=== PATIENT | female | born 1995 | race Caucasian/White ===

== ENCOUNTER 2017-04-05 17:53 | Outpatient (CLI) | payer MEDICAID ==
[2017-04-05] MEDS ORDERED: Lactated Ringers 1,000 ML IV SCH (18:15)
[2017-04-05] MEDS ORDERED: hydrOXYzine Pamoate 25 MG Cap PO ONE (18:33)
[2017-04-05 19:18] LABS: CHLORIDE,CL 107 mmol/L (98-110); SODIUM,NA 138 mmol/L (136-146)
--- NOTE | 2017-04-06 00:50 | HP ---
DATE OF : 1995 PRIMARY CARE PHYSICIAN: None PCP CHIEF COMPLAINT: Vaginal bleeding. HISTORY: This is a 21-year-old female. She is G2, P1-0-1-1. She presents at 34 and 0/7th weeks' gestation with bright red blood after wiping. She has not had any vaginal intercourse in the last 48 hours. 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 She was working today when the bleeding occurred. She denies any abdominal pain. No nausea or vomiting. Baby has been active. She is not noticing any contractions. Her care is with Dr. Jamison. It has to this point been uncomplicated. 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 She was scheduled to have her thyroid labs rechecked this Tuesday. She states that she is feeling anxious as she does sometimes when her thyroid is not appropriately adjusted. She does have a history of depression. She is blood type O positive, rubella nonimmune. PAST MEDICAL HISTORY: Significant for depression, hypothyroidism secondary to Berry's thyroiditis. PAST SURGICAL HISTORY: Negative. ALLERGIES: She has an allergy to an antibiotic. She is uncertain which one it is. SOCIAL HISTORY: She is single, sexually active. She denies use of tobacco, alcohol, or street drugs. PHYSICAL EXAMINATION: GENERAL: She is alert and oriented, but very anxious appearing. VITAL SIGNS: Blood pressure is 138/79, pulse is 96, heart tones are 135 with moderate variability, accelerations present, no decelerations are noted. She is having contractions every 8 to 15 minutes. LUNGS: Clear. CARDIOVASCULAR: Regular rate without murmur. ABDOMEN: Soft, gravid, nontender. Fundus is appropriate height for gestational age and nontender. EXTREMITIES: Show trace edema. GENITAL EXAM: External genitalia appears normal. Vagina is moist and pink. There is a whitish discharge. There is no blood in the vagina. Cervix is closed, firm, and thick. ASSESSMENT AND PLAN: 1. Thirty-four week intrauterine with vaginal bleeding. We will get ultrasound to assess the placenta and cervical length. fibronectin is also obtained to rule out labor and the Affirm swab and gonorrhea chlamydia testing are obtained to rule out vaginitis or cervicitis as a cause of the spotting. If all of the evaluation is negative, we will have her off work for one day. She may resume work the following day, and she does have an appointment on Tuesday, so she can report any further symptoms at that time. 2. Anxiety and hypothyroidism. We will check TSH and free T4 at this time. She is given visceral to help with her anxiety. CHRISTAL KENNEDY /[id number]
--- NOTE | 2017-04-06 15:54 | US ---
EXAM DATE: 04/05/17 PATIENT'S AGE: 21 Patient: RUTH HORVATH Facility: [place], [place] Site . Site : 1995 Study: OB Pelvis [id number]/9/2017 8:19:57 PM Ordering Physician: Shaheen Ceron Final Report: INDICATION: with vaginal bleeding. Check placenta, cervical length. TECHNIQUE: Limited OB pelvis with transabdominal and endovaginal imaging. Limited decker- scale imaging of the fetus was performed. COMPARISON: Limited OB ultrasound dated 01/09/2017 FINDINGS: The cervix is long and closed on endovaginal imaging. No funneling of the internal os. Mean cervical length 3.8 centimeters. No evidence of placenta previa or abruption. Placenta is anterior in location. heart rate measures 150 beats per minute. SHAY normal, measuring 19.7 centimeters. IMPRESSION: 1. Single viable intrauterine with clinical gestational age of 34 weeks 0 days with clinical DOC 05/17/2017. 2. Cervix long and closed. 3. Normal SHAY. Dictated by Ej Shrestha MD @ 04/05/2017 8:57:33 PM Dictated by: Ej Shrestha MD @ 04/05/2017 20:57:40 (Electronic Signature) Report Signed by Proxy. MTDD
== END 2017-04-05 22:00 | disposition home or self-care (01) ==
LOC: MW.OBCHECK 17:53 → MW.OB 17:54 → MW.OBCHECK 22:00
PROVIDERS: ATTEND Obstetrics & Gynecology
DX: O46.93 Antepartum hemorrhage, unspecified, third trimester (principal); N93.9 Abnormal uterine and vaginal bleeding, unspecified; Z3A.34 34 weeks gestation of pregnancy
CPT/HCPCS: 36415; 59025; 76815; 76815-26; 80053; 81003; 82731; 84439; 84443; 85027; 87480; 87491; 87510; 87591; 87660

== ENCOUNTER 2017-04-12 14:23 | Outpatient (CLI) | payer MEDICAID ==
[2017-04-12 15:22] LABS: CHLORIDE,CL 106 mmol/L (98-110); SODIUM,NA 137 mmol/L (136-146)
[2017-04-12] MEDS ORDERED: Acetaminophen/Butalbital/Caffeine 325-50-40 MG Tab PO ONE (15:37)
[2017-04-12] MEDS ORDERED: hydrOXYzine Pamoate 25 MG Cap PO ONE (15:37)
== END 2017-04-12 15:58 | disposition home or self-care (01) ==
LOC: MW.OBCHECK 14:23
PROVIDERS: ATTEND Obstetrics & Gynecology
DX: O26.899 Other specified pregnancy related conditions, unspecified trimester (principal); R51 Headache; Z3A.00 Weeks of gestation of pregnancy not specified
CPT/HCPCS: 36415; 59025; 80053; 81003; 84550; 85027; A9270

== ENCOUNTER 2017-05-22 16:47 | Inpatient (IN) | payer MEDICAID ==
[2017-05-22] MEDS ORDERED: Carboprost Tromethamine 250 MCG/1 ML Amp IM PRN (16:59)
[2017-05-22] MEDS ORDERED: Water For Irrigation,Sterile 1,000 ML Container IRR PRN (16:59)
[2017-05-22] MEDS ORDERED: Lidocaine 1% 50 ML MDV INJECT PRN (16:59)
[2017-05-22] MEDS ORDERED: Misoprostol 200 MCG Tab PO PRN (16:59)
[2017-05-22] MEDS ORDERED: Sodium Chloride 0.9% 10 ML Syringe FLUSH PRN (16:59)
[2017-05-22] MEDS ORDERED: Sodium Chloride 0.9% 2.5 ML Syringe FLUSH PRN (16:59)
[2017-05-22] MEDS ORDERED: Butorphanol 1 MG/ML SDV IVPUSH PRN (16:59)
[2017-05-22] MEDS ORDERED: Methylergonovine 0.2 MG/1 ML Amp IM PRN (16:59)
[2017-05-22] MEDS ORDERED: Oxytocin/Lactated Ringers 30 UNIT/500 ML BAG IV SCH ×2 (17:00→17:15)
[2017-05-22] MEDS ORDERED: Terbutaline 1 MG/ML SDV SUBCUT PRN (17:02)
[2017-05-22] MEDS ORDERED: Misoprostol 25 MCG (1/4 of 100 MCG) Tab VAG PRN (17:02)
[2017-05-22] MEDS ORDERED: Misoprostol 25 MCG (1/4 of 100 MCG) Tab VAG ONE (17:15)
[2017-05-22] MEDS: Lactated Ringers 1,000 ML IV SCH (17:45)
[2017-05-23] MEDS: Lactated Ringers 1,000 ML IV SCH ×2 (10:24→11:13)
[2017-05-23] MEDS ORDERED: fentaNYL 100 MCG/2 ML SDV ONE (10:49)
[2017-05-23] MEDS ORDERED: Ropivacaine 0.2% 2 MG/ML 20 ML SDV ONE (10:55)
[2017-05-23] MEDS ORDERED: Bisacodyl 10 MG Supp RECTAL PRN (16:34)
[2017-05-23] MEDS ORDERED: Docusate Sodium 100 MG Cap PO PRN (16:34)
[2017-05-23] MEDS ORDERED: Benzocaine/Menthol 20%-0.5% Spray 78 GM Cannister TOP PRN (16:34)
[2017-05-23] MEDS ORDERED: Lanolin 100% Cream 7 GM Tube TOP PRN (16:34)
[2017-05-23] MEDS ORDERED: Witch Hazel Medicated Pads 40/Jar TOP PRN (16:34)
[2017-05-23] MEDS ORDERED: Acetaminophen 500 MG Tab PO PRN ×2 (16:34)
[2017-05-23] MEDS ORDERED: oxyCODONE 5 MG Tab PO PRN (16:34)
[2017-05-23] MEDS ORDERED: Ibuprofen 400 MG Tab PO PRN (16:34)
--- NOTE | 2017-05-23 17:04 | OR ---
SURGEON: Jie Jamison M.D. DATE OF PROCEDURE: 05/23/2017 PREOPERATIVE DIAGNOSES: 1. A 40 and 6 weeks intrauterine . 2. Induction of labor for positive . POSTOPERATIVE DIAGNOSES: 1. A 40 and 6 weeks intrauterine . 2. Induction of labor for positive . PROCEDURE: Spontaneous vaginal delivery with first-degree labial laceration repair. ESTIMATED BLOOD LOSS: 300 mL. ANESTHESIA: Epidural. COMPLICATIONS: None. FINDINGS: Viable female. Score 7 at one minute and 9 at five minutes. Weight, pending. Spontaneous delivery of intact placenta. Three-vessel cord. DISPOSITION: Infant to nursery, mom in LDRP, stable. PROCEDURE IN DETAIL: Hillary is a 21-year-old G3, P1-0-1-1, at 40 and 6 weeks gestational age, presents yesterday evening for an induction for positive . She received three doses of Cytotec and responded nicely to this. The following morning was found to be 4 cm, was initiated on Pitocin, became increasingly uncomfortable throughout the morning hours. She had category I heart tones in the 120s. She underwent an epidural shortly before noon and amniotomy was performed shortly after noon. Clear fluid was returned. At that time, she was found to be 5 cm, 100% effaced, 0 station. She continued to progress through the afternoon hours and shortly after 3:00 p.m. was found to be complete, 100% effaced, and +1 station. Began pushing efforts, pushed out satisfactorily. I was called for delivery. Upon my arrival, the patient was placed in modified dorsal lithotomy position. She was prepped and draped in the usual aseptic manner. With continued pushing efforts, was able to deliver infant's head atraumatically, spontaneously in the ROP position. Anterior shoulder, posterior shoulder, and remainder of the body was delivered without difficulty. The infant's oropharynx and nares bulb suctioned. Cord clamped x2 and cut. was handed off to her mother today with nursing staff at her side. Cord arterial, cord venous, cord blood sampling was obtained. Light suprapubic pressure was applied while the placenta was delivered spontaneously intact. Vigorous fundal uterine massage was then applied with 30 units of Pitocin was delivered in 500 mL IV fluid. Upon inspection of cervix, vaginal sidewalls, and perineum, there was found to be 1st degree right labial and left hymenal ring tear. Laceration was repaired using 3-0 Vicryl. The patient tolerated the repair well. Hemostasis appears evident. Sponge count and needle count correct. Fundus remains firm. Hemostasis evident. Hillary will remain in LDRP and nursery. JADA / MARCIA /[id number]
[2017-05-23] MEDS: Ibuprofen 800 MG Tab PO PRN ×2 (17:10→23:42)
[2017-05-24] MEDS: Ibuprofen 800 MG Tab PO PRN ×2 (05:32→13:17)
[2017-05-24 08:03] VITALS: BP 109/55
--- NOTE | 2017-05-24 08:28 | PCM.PNPP ---
[id number] Status: Reports: pain controlled, tolerating diet, ambulating, urinating - Review of Systems General: Denies: Fever, Weakness, Fatigue Pulmonary: Denies: shortness of breath, pleuritic chest pain, cough Cardiovascular: Denies: Chest Pain, Palpitations, Dyspnea on Exertion Gastrointestinal: Denies: Abdominal pain Genitourinary: Denies: dysuria Psychiatric: Reports: no symptoms - General Info Date of Service: 05/24/17 - Patient Data Vital Signs - most recent: Last Vital Signs Temp 36.7 C 05/24/17 08:02 Pulse 54 L 05/24/17 08:02 Resp 18 05/24/17 08:02 BP 109/55 L 05/24/17 08:02 Pulse Ox Weight - most recent: 87.543 kg Lab Results - last 24 hrs: Laboratory Results - last 24 hr 05/24/17 Range/Units 04:19 Hgb 11.4 L (12.0-16.0) g/dL Hct 32.8 L (36.0-46.0) % Med Orders - Current: Current Medications Acetaminophen (Tylenol Extra Strength) 500 mg PO Q4H PRN PRN Reason: Pain Acetaminophen (Tylenol Extra Strength) 1,000 mg PO Q4H PRN PRN Reason: Pain Benzocaine/Menthol (Dermoplast Pain Relief 20%-0.5% [place]) 78 gm TOP ASDIRECTED PRN PRN Reason: Perineal Comfort Measure Last Admin: 05/23/17 17:09 Dose: 1 can Bisacodyl (Dulcolax) 10 mg RECTAL .ONCE PRN PRN Reason: Constipation Carboprost Tromethamine (Hemabate Ds) 250 mcg IM ASDIRECTED PRN PRN Reason: Post Hemorrhage Docusate Sodium (Colace) 100 mg PO BID PRN PRN Reason: Constipation Last Admin: 05/23/17 17:10 Dose: 100 mg Emollient Ointment (Lansinoh Hpa) 0 gm TOP ASDIRECTED PRN PRN Reason: Sore Nipples Lactated Ringer's (Ringers, Lactated) 1,000 mls @ 150 mls/hr IV ASDIRECTED JAZMYN Last Admin: 05/23/17 11:13 Dose: 150 mls/hr Oxytocin/Lactated Ringer's (Pitocin In Lr 30 Units/500 Ml) 30 unit in 500 mls @ 2 mls/hr IV TITRATE JAZMYN; 2 MUNITS/MIN PRN Reason: Protocol Last Titration: 05/23/17 11:47 Dose: 6 munits/min, 6 mls/hr Ibuprofen (Motrin) 400 mg PO Q4H PRN PRN Reason: Pain Ibuprofen (Motrin) 800 mg PO Q6H PRN PRN Reason: Pain Last Admin: 05/24/17 05:32 Dose: 800 mg Lidocaine HCl (Xylocaine 1%) 50 ml INJECT .ONCE PRN PRN Reason: Laceration repair Methylergonovine Maleate (Methergine) 0.2 mg IM ASDIRECTED PRN PRN Reason: Post Hemorrhage Oxycodone HCl (Oxycodone) 5 mg PO Q2H PRN PRN Reason: Pain Sodium Chloride (Saline Flush) 2.5 ml FLUSH ASDIRECTED PRN PRN Reason: Keep Vein Open Witch Helen (Tucks) 1 pad TOP ASDIRECTED PRN PRN Reason: comfort care Last Admin: 05/23/17 17:09 Dose: 1 tub Discontinued Medications Butorphanol Tartrate (Stadol) 1 mg IVPUSH Q1H PRN PRN Reason: Pain Fentanyl (Sublimaze) Confirm Administered Dose 100 mcg .ROUTE .STK-MED ONE Stop: 05/23/17 10:50 Last Admin: 05/23/17 22:15 Dose: Not Given Oxytocin/Lactated Ringer's (Pitocin In Lr 30 Units/500 Ml) 30 unit in 500 mls @ 999 mls/hr IV TITRATE JAZMYN PRN Reason: 999 MUNITS/MIN Stop: 05/22/17 17:31 Last Admin: 05/23/17 22:14 Dose: Not Given Ropivacaine/Fentanyl/NS (Fentanyl 2 Mcg-Ropiv 0.2%-Ns) Confirm Administered Dose 100 mls @ as directed .ROUTE .STK-MED ONE Stop: 05/23/17 10:51 Last Admin: 05/23/17 22:15 Dose: Not Given Misoprostol (Cytotec) 200 mcg PO .ONCE PRN PRN Reason: Post Hemorrhage Misoprostol (Cytotec) 25 mcg VAG ONETIME ONE Stop: 05/22/17 17:16 Last Admin: 05/22/17 18:01 Dose: 25 mcg Misoprostol (Cytotec) 25 mcg VAG Q6H PRN PRN Reason: Cervical Ripening Stop: 05/24/17 11:03 Last Admin: 05/23/17 00:19 Dose: 25 mcg Ropivacaine (Naropin 0.2%) Confirm Administered Dose 20 ml .ROUTE .STK-MED ONE Stop: 05/23/17 10:56 Last Admin: 05/23/17 22:15 Dose: Not Given Sodium Chloride (Saline Flush) 10 ml FLUSH ASDIRECTED PRN PRN Reason: Keep Vein Open Sterile Water (Sterile Water For Irrigation) 1,000 ml IRR ASDIRECTED PRN PRN Reason: delivery Last Admin: 05/23/17 16:11 Dose: 1,000 ml Terbutaline Sulfate (Brethine) 0.25 mg SUBCUT ASDIRECTED PRN PRN Reason: Tacysystole - Infant Interaction Infant Disposition, : in Room with Family Interaction: Holding Feeding: Breastfed ; Nursed Well Support Person: Mother, Friend - Recovery Exam Fundal Tone: Firm Fundal Level: 1 Fingerbreadths Below Umbilicus Fundal Placement: Midline Lochia Amount: Scant Lochia Color: Rubra/Red Episiotomy/Laceration: Approximated Bladder Status: Voiding - Exam General: alert, oriented Neck: supple Lungs: Clear to auscultation, Normal respiratory effort Cardiovascular: Regular Rate, Regular Rhythm Abdomen: bowel sounds present, soft, no tenderness, no distension Extremities: edema (trace) Psy/Mental Status: alert, normal affect, normal mood - Problem List & Annotations (1) Vaginal delivery SNOMED Code(s): 872395194 Code(s): O80 - ENCOUNTER FOR FULL-TERM UNCOMPLICATED DELIVERY Status: Acute Current Visit: Yes - Problem List Review Problem List Initiated/Reviewed/Updated: Yes - Assessment Assessment:: PPD#1 from . Minimal pain and lochia. Breast feeding well. Patient would like to go home today. - Plan Plan:: Discharge home today. Nothing in the vagina for 6 weeks. Continue PNV while breast feeding. Can use OTC ibuprofen/tylenol as needed for pain. Instructed patient to call if she develops fever greater than 101 or starts bleeding through a large pad an hour. F/U with [facility] in 6 weeks. <Jie Jamison R - Last Filed: 05/24/17 09:20> - Patient Data Vital Signs - most recent: Last Vital Signs Temp 36.7 C 05/24/17 08:02 Pulse 54 L 05/24/17 08:02 Resp 18 05/24/17 08:02 BP 109/55 L 05/24/17 08:02 Pulse Ox Lab Results - last 24 hrs: Laboratory Results - last 24 hr 05/24/17 Range/Units 04:19 Hgb 11.4 L (12.0-16.0) g/dL Hct 32.8 L (36.0-46.0) % Med Orders - Current: Current Medications Acetaminophen (Tylenol Extra Strength) 500 mg PO Q4H PRN PRN Reason: Pain Acetaminophen (Tylenol Extra Strength) 1,000 mg PO Q4H PRN PRN Reason: Pain Benzocaine/Menthol (Dermoplast Pain Relief 20%-0.5% [place]) 78 gm TOP ASDIRECTED PRN PRN Reason: Perineal Comfort Measure Last Admin: 05/23/17 17:09 Dose: 1 can Bisacodyl (Dulcolax) 10 mg RECTAL .ONCE PRN PRN Reason: Constipation Carboprost Tromethamine (Hemabate Ds) 250 mcg IM ASDIRECTED PRN PRN Reason: Post Hemorrhage Docusate Sodium (Colace) 100 mg PO BID PRN PRN Reason: Constipation Last Admin: 05/23/17 17:10 Dose: 100 mg Emollient Ointment (Lansinoh Hpa) 0 gm TOP ASDIRECTED PRN PRN Reason: Sore Nipples Lactated Ringer's (Ringers, Lactated) 1,000 mls @ 150 mls/hr IV ASDIRECTED JAZMYN Last Admin: 05/23/17 11:13 Dose: 150 mls/hr Oxytocin/Lactated Ringer's (Pitocin In Lr 30 Units/500 Ml) 30 unit in 500 mls @ 2 mls/hr IV TITRATE JAZMYN; 2 MUNITS/MIN PRN Reason: Protocol Last Titration: 05/23/17 11:47 Dose: 6 munits/min, 6 mls/hr Ibuprofen (Motrin) 400 mg PO Q4H PRN PRN Reason: Pain Ibuprofen (Motrin) 800 mg PO Q6H PRN PRN Reason: Pain Last Admin: 05/24/17 05:32 Dose: 800 mg Lidocaine HCl (Xylocaine 1%) 50 ml INJECT .ONCE PRN PRN Reason: Laceration repair Methylergonovine Maleate (Methergine) 0.2 mg IM ASDIRECTED PRN PRN Reason: Post Hemorrhage Oxycodone HCl (Oxycodone) 5 mg PO Q2H PRN PRN Reason: Pain Sodium Chloride (Saline Flush) 2.5 ml FLUSH ASDIRECTED PRN PRN Reason: Keep Vein Open Witch Helen (Tucks) 1 pad TOP ASDIRECTED PRN PRN Reason: comfort care Last Admin: 05/23/17 17:09 Dose: 1 tub Discontinued Medications Butorphanol Tartrate (Stadol) 1 mg IVPUSH Q1H PRN PRN Reason: Pain Fentanyl (Sublimaze) Confirm Administered Dose 100 mcg .ROUTE .STK-MED ONE Stop: 05/23/17 10:50 Last Admin: 05/23/17 22:15 Dose: Not Given Oxytocin/Lactated Ringer's (Pitocin In Lr 30 Units/500 Ml) 30 unit in 500 mls @ 999 mls/hr IV TITRATE JAZMYN PRN Reason: 999 MUNITS/MIN Stop: 05/22/17 17:31 Last Admin: 05/23/17 22:14 Dose: Not Given Ropivacaine/Fentanyl/NS (Fentanyl 2 Mcg-Ropiv 0.2%-Ns) Confirm Administered Dose 100 mls @ as directed .ROUTE .STK-MED ONE Stop: 05/23/17 10:51 Last Admin: 05/23/17 22:15 Dose: Not Given Misoprostol (Cytotec) 200 mcg PO .ONCE PRN PRN Reason: Post Hemorrhage Misoprostol (Cytotec) 25 mcg VAG ONETIME ONE Stop: 05/22/17 17:16 Last Admin: 05/22/17 18:01 Dose: 25 mcg Misoprostol (Cytotec) 25 mcg VAG Q6H PRN PRN Reason: Cervical Ripening Stop: 05/24/17 11:03 Last Admin: 05/23/17 00:19 Dose: 25 mcg Ropivacaine (Naropin 0.2%) Confirm Administered Dose 20 ml .ROUTE .STK-MED ONE Stop: 05/23/17 10:56 Last Admin: 05/23/17 22:15 Dose: Not Given Sodium Chloride (Saline Flush) 10 ml FLUSH ASDIRECTED PRN PRN Reason: Keep Vein Open Sterile Water (Sterile Water For Irrigation) 1,000 ml IRR ASDIRECTED PRN PRN Reason: delivery Last Admin: 05/23/17 16:11 Dose: 1,000 ml Terbutaline Sulfate (Brethine) 0.25 mg SUBCUT ASDIRECTED PRN PRN Reason: Tacysystole - My Orders Last 24 Hours: My Active Orders 05/23/17 16:34 Patient Status [ADT] Routine May Shower [RC] ASDIRECTED Oxygen Therapy [RC] ASDIRECTED Up ad Arlene [RC] ASDIRECTED Vital Signs [RC] PER UNIT ROUTINE Acetaminophen [Tylenol Extra Strength] 1,000 mg PO Q4H PRN Acetaminophen [Tylenol Extra Strength] 500 mg PO Q4H PRN Benzocaine/Menthol [Dermoplast Pain Relief 20%-0.5% [place]] 78 gm TOP ASDIRECTED PRN Bisacodyl [Dulcolax] 10 mg RECTAL .ONCE PRN Docusate Sodium [Colace] 100 mg PO BID PRN Ibuprofen [Motrin] 400 mg PO Q4H PRN Ibuprofen [Motrin] 800 mg PO Q6H PRN Lanolin [Lansinoh HPA] See Dose Instructions TOP ASDIRECTED PRN Witch Helen [Tucks] 1 pad TOP ASDIRECTED PRN oxyCODONE 5 mg PO Q2H PRN Assess Lochia [WOMSER] Per Unit Routine Assess Uterine Involution [WOMSER] Per Unit Routine Ice Therapy [OM.PC] Per Unit Routine Perineal Care [OM.PC] Per Unit Routine Peripheral IV Discontinue [OM.PC] Routine Sitz Bath [OM.PC] Per Unit Routine 05/23/17 Dinner Regular Diet [DIET] - Plan Plan:: Patient seen and examined, will start antidepressants aas discussed for PP depression prophylaxis given history. Will check thyroid function at PP visit
--- NOTE | 2017-05-24 10:15 | PCM48HPAN ---
Post Anesthesia Note - EVALUATION WITHIN 48HRS OF ANESTHETIC Vital Signs in Normal Range: Yes Patient Participated in Evaluation: Yes Respiratory Function Stable: Yes Airway Patent: Yes Cardiovascular Function Stable: Yes Hydration Status Stable: Yes Pain Control Satisfactory: Yes Nausea and Vomiting Control Satisfactory: Yes Mental Status Recovered: Yes
[2017-05-24] MEDS ORDERED: Measles, Mumps & Rubella Vaccine 0.5 ML SDV SUBCUT ONE (15:18)
== END 2017-05-24 19:15 | disposition home or self-care (01) | DRG 775 ==
LOC: MW.OBCHECK 16:47 → MW.OB 16:49 → MW.OBCHECK 17:04 → OBSVTOIN 05-23 16:11 → MW.OB 05-24 00:07
PROVIDERS: ADMIT Obstetrics & Gynecology; ATTEND Obstetrics & Gynecology
PROC: 10E0XZZ Delivery of Products of Conception, External Approach (ICD-10-PCS; principal; 2017-05-23)
PROC: 0HQ9XZZ Repair Perineum Skin, External Approach (ICD-10-PCS; 2017-05-23)
PROC: 10907ZC Drainage of Amniotic Fluid, Therapeutic from Products of Conception, Via Natural or Artificial Opening (ICD-10-PCS; 2017-05-23)
PROC: 00HU33Z Insertion of Infusion Device into Spinal Canal, Percutaneous Approach (ICD-10-PCS; 2017-05-23)
PROC: 3E0R3CZ (ICD-10-PCS; 2017-05-23)
DX: O48.0 Post-term pregnancy (principal); O70.0 First degree perineal laceration during delivery; Z3A.41 41 weeks gestation of pregnancy; Z37.0 Single live birth; O99.284 Endocrine, nutritional and metabolic diseases complicating childbirth; E06.3 Autoimmune thyroiditis; Z87.891 Personal history of nicotine dependence
CPT/HCPCS: 01967; 36415; 59025; 85014; 85018; 85027; 86850; 86900; 86901; 90707; A9270-GY; J7120

== ENCOUNTER 2017-05-26 19:28 | Inpatient (IN) | payer MEDICAID ==
[2017-05-26] MEDS ORDERED: Sodium Chloride 0.9% 10 ML Syringe FLUSH PRN (19:51)
[2017-05-26] MEDS ORDERED: Sodium Chloride 0.9% 2.5 ML Syringe FLUSH PRN (19:51)
[2017-05-26] MEDS ORDERED: LORazepam 2 MG/ML MDV IVPUSH ONE (19:53)
[2017-05-26] MEDS ORDERED: Acetaminophen 325 MG Tab PO ONE (19:53)
--- NOTE | 2017-05-26 19:55 | EDM.PDOC ---
[id number] 4d fever Time Seen by Provider: 05/26/17 19:50 - History of Present Illness INITIAL COMMENTS - FREE TEXT/NARRATIVE: vaginal at term Tuesday. Now with fever. She also felt anxious and felt that her heart was racing. no BM since delivery. She is breast feeding. 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: , 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 Musculoskeletal History: Reports: None Neurological History: Reports: None Psychiatric History: Reports: Anxiety Endocrine/Metabolic History: Reports: Hypothyroidism, Other (See Below) Other Endocrine/Metabolic History: Hasimotos tyroiditis Hematologic History: Reports: None Immunologic History: Reports: Other (See Below) Other Immunologic History: Hashimotos disease Oncologic (Cancer) History: Reports: None Dermatologic History: Reports: None - Infectious Disease History Infectious Disease History: Reports: None - Past Surgical History Head Surgeries/Procedures: Reports: None Female Surgical History: Reports: D&C Social & Family History - Family History Family Medical History: Noncontributory Cardiac: Reports: Pacemaker Respiratory: Reports: Asthma OBGYN: Reports: Neurological: Reports: CVA Endocrine/Metabolic: Reports: Diabetes, type II Oncologic: Reports: Colon - Tobacco Use Smoking Status *Q: Former Smoker Years of Tobacco use: 6 Packs/Tins Daily: 1 Used Tobacco, but Quit: Yes Month Tobacco Last Used: january 2017 Second Hand Smoke Exposure: Yes - Alcohol Use Days Per Week of Alcohol Use: 0 Number of Drinks Per Day: 15 Total Drinks Per Week: 0 - Recreational Drug Use Recreational Drug Use: No Drug Use in Last 12 Months: No Recreational Drug Type: Reports: Methamphetamine (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 Denies: Chills HEENT: Denies: Ear Pain, Eye Discharge, Nose Pain, Rhinitis, Sinus Problem, Throat Pain, Throat Swelling Respiratory: Denies: Shortness of Breath, Wheezing, Cough, Sputum, Hemoptysis Cardiovascular: Denies: Chest Pain, Edema GI/Abdominal: Reports: Abdominal Pain : Denies: Dysuria, Frequency, Hematuria Skin: Denies: Cyanosis ED EXAM, GI/ABD - Physical Exam Exam: See Below Exam Limited By: No Limitations General Appearance: Alert, No Apparent Distress Nose: No Blood. No: Nasal Drainage, Clear Rhinorrhea Throat/Mouth: Normal Lips, Normal Oropharynx, Normal Voice Head: Atraumatic Neck: Supple, Non-Tender Respiratory/Chest: Lungs Clear, Normal Breath Sounds, No Accessory Muscle Use, Chest Non-Tender Cardiovascular: Regular Rate, Rhythm, No Murmur GI/Abdominal: Soft. No: Non-Tender (mild suprapubic tenderness) Rectal (Female) Exam: Deferred Course - Vital Signs Last Recorded V/S: Last Vital Signs Temp 96.6 F 05/28/17 08:00 Pulse 63 05/28/17 08:00 Resp 16 05/28/17 08:00 BP 120/66 05/28/17 08:00 Pulse Ox 98 05/28/17 08:00 - Orders/Labs/Meds Labs: Laboratory Tests 05/26/17 05/26/17 05/26/17 Range/Units 20:00 20:00 20:30 WBC 8.73 (4.0-11.0) K/uL RBC 4.37 (4.30-5.90) M/uL Hgb 13.3 (12.0-16.0) g/dL Hct 38.3 (36.0-46.0) % MCV 87.6 (80.0-98.0) fL MCH 30.4 (27.0-32.0) pg MCHC 34.7 (31.0-37.0) g/dL RDW Std Deviation 43.8 (28.0-62.0) fl RDW Coeff of Adal 14 (11.0-15.0) % Plt Count 207 (150-400) K/uL MPV 9.60 (7.40-12.00) fL Add Manual Diff YES Neutrophils % (Manual) 59 (48.0-80.0) % Band Neutrophils % 4 % Lymphocytes % (Manual) 28 (16.0-40.0) % Monocytes % (Manual) 5 (0.0-15.0) % Eosinophils % (Manual) 4 (0.0-7.0) % Nucleated RBC % 0.0 /100WBC Absolute Seg Neuts 5.2 Band Neutrophils # 0.3 Lymphocytes # (Manual) 2.4 Monocytes # (Manual) 0.4 Eosinophils # (Manual) 0.3 Nucleated RBCs # 0 K/uL Sodium 139 (136-146) mmol/L Potassium 3.3 L (3.5-5.1) mmol/L Chloride 106 (98-110) mmol/L Carbon Dioxide 21 (21-31) mmol/L BUN 10 (6.0-23.0) mg/dL Creatinine 0.8 (0.6-1.5) mg/dL Est Cr Clr Drug Dosing 83.23 mL/min Estimated GFR (MDRD) > 60.0 ml/min Glucose 110 (60-110) mg/dL Calcium 9.1 (8.8-10.8) mg/dL Magnesium 1.4 L (1.5-2.3) mEq/L Total Bilirubin 0.4 (0.1-1.5) mg/dL AST 40 (5-40) IU/L ALT 48 (8-54) IU/L Alkaline Phosphatase 124 (40-150) Total Protein 7.1 (6.0-8.0) g/dL Albumin 3.7 (3.5-5.0) g/dL Globulin 3.4 (2.0-3.5) g/dL Albumin/Globulin Ratio 1.1 L (1.3-2.8) Urine Color YELLOW Urine Appearance CLEAR Urine pH 7.0 (5.0-8.0) Ur Specific [place] 1.010 (1.001-1.035) Urine Protein NEGATIVE (NEGATIVE) mg/dL Urine Glucose (UA) NEGATIVE (NEGATIVE) mg/dL Urine Ketones NEGATIVE (NEGATIVE) mg/dL Urine Occult Blood SMALL H (NEGATIVE) Urine Nitrite NEGATIVE (NEGATIVE) Urine Bilirubin NEGATIVE (NEGATIVE) Urine Urobilinogen 0.2 (<2.0) EU/dL Ur Leukocyte Esterase TRACE (NEGATIVE) Urine RBC 0-2 (0-2/HPF) Urine WBC 0-1 (0-5/HPF) Ur Epithelial Cells FEW (NONE-FEW) Urine Bacteria RARE (NEGATIVE) Meds: Medications Discontinued Medications Generic Name Dose Route Start Last Admin Trade Name Freq PRN Reason Stop Dose Admin Acetaminophen 500 mg 05/26/17 19:53 05/26/17 20:13 Tylenol PO 05/26/17 19:54 500 mg NOW ONE Administration Acetaminophen 650 mg 05/26/17 23:32 Tylenol PO Q4H PRN Pain (mild 1-3) Ampicillin Sodium 1,000 mg 05/26/17 21:30 05/27/17 00:46 Ampicillin IVPUSH Not Given Q6H JAZMYN Diphenhydramine HCl 25 mg 05/26/17 20:05 05/26/17 20:15 Benadryl IVPUSH 05/26/17 20:06 25 mg ONETIME ONE Administration Diphenhydramine HCl 25 mg 05/26/17 21:35 Benadryl IVPUSH Q6H PRN Itching Sodium Chloride 1,000 mls @ 500 mls/hr 05/26/17 20:00 05/26/17 20:13 Normal Saline IV 500 mls/hr ASDIRECTED JAZMYN Administration Clindamycin Phosphate 300 mg/ 52 mls @ 100 mls/hr 05/26/17 21:30 05/27/17 00: 47 Sodium Chloride IV Not Given Q6H JAZMYN Gentamicin Sulfate 80 mg/ 52 mls @ 100 mls/hr 05/26/17 21:30 05/27/17 00:47 Sodium Chloride IV Not Given Q12H JAZMYN Gentamicin Sulfate 80 mg/ 52 mls @ 100 mls/hr 05/26/17 21:45 05/27/17 05:15 Sodium Chloride IV 100 mls/hr Q8H JAZMYN Administration Ampicillin Sodium 1 gm/ Sodium 50 mls @ 100 mls/hr 05/26/17 22:30 05/28/17 09 :53 Chloride IV 100 mls/hr Q6H JAZMYN Administration Clindamycin Phosphate 300 mg/ 50 mls @ 150 mls/hr 05/26/17 22:48 05/26/17 22: 52 Premix IV 05/26/17 23:07 150 mls/hr ONETIME ONE Administration Clindamycin Phosphate 900 mg/ 50 mls @ 100 mls/hr 05/27/17 06:00 Premix IV Q8H JAZMYN Lactated Ringer's 1,000 mls @ 125 mls/hr 05/26/17 23:45 05/27/17 00:23 Ringers, Lactated IV 125 mls/hr ASDIRECTED JAZMYN Administration Clindamycin Phosphate 900 mg/ 50 mls @ 100 mls/hr 05/27/17 04:00 05/27/17 05: 42 Premix IV Not Given Q8H JAZMYN Clindamycin Phosphate 900 mg/ 50 mls @ 100 mls/hr 05/27/17 06:00 05/28/17 05: 30 Premix IV 100 mls/hr Q8H JAZMYN Administration Gentamicin Sulfate 400 mg/ 60 mls @ 115.385 mls/hr 05/27/17 13:00 05/27/17 13 :03 Sodium Chloride IV 115.385 mls/hr Q24H JAZMYN Administration Ibuprofen 600 mg 05/26/17 23:32 Motrin PO Q6H PRN Pain (mild 1-3) Levothyroxine Sodium 37.5 mcg 05/27/17 07:30 05/28/17 07:17 Levothyroxine PO 37.5 mcg ACBREAKFAST JAZMYN Administration Lorazepam 1 mg 05/26/17 19:53 05/27/17 00:46 Ativan IVPUSH 05/26/17 19:54 Not Given ONETIME ONE Magnesium Hydroxide 30 ml 05/26/17 23:32 Milk Of Magnesia PO Q6H PRN Constipation Ondansetron HCl 4 mg 05/26/17 23:32 Zofran IVPUSH Q6H PRN Nausea/Vomiting Prenat Multivit/[place]/Iron/Folic Ac 1 each 05/27/17 09:00 05/27/17 09:44 Mtr PO Not Given DAILY JAZMYN Prenat Multivit/[place]/Iron/Folic Ac 1 each 05/27/17 21:00 05/27/17 21:30 Mtr PO 1 each BEDTIME JAZMYN Administration Sodium Chloride 10 ml 05/26/17 19:51 Saline Flush FLUSH ASDIRECTED PRN Keep Vein Open Sodium Chloride 2.5 ml 05/26/17 19:51 Saline Flush FLUSH ASDIRECTED PRN Keep Vein Open Departure - Departure Time of Disposition: 08:00 Disposition: Admitted As Inpatient 65 Condition: Fair Clinical Impression: Endometritis following delivery - Discharge Information
[2017-05-26] MEDS ORDERED: Sodium Chloride 0.9% 1,000 ML IV SCH (20:00)
[2017-05-26] MEDS ORDERED: diphenhydrAMINE 50 MG/ML SDV IVPUSH ONE (20:05)
[2017-05-26 20:37] LABS: CHLORIDE,CL 106 mmol/L (98-110); SODIUM,NA 139 mmol/L (136-146)
[2017-05-26] MEDS ORDERED: Ampicillin 500 MG Vial IVPUSH SCH (21:30)
[2017-05-26] MEDS ORDERED: diphenhydrAMINE 50 MG/ML SDV IVPUSH PRN (21:35)
[2017-05-26] MEDS ORDERED: Clindamycin Phosphate in D5W 300 MG in Premix Bag 1 BAG IV ONE ×2 (22:48)
[2017-05-26] MEDS: Ampicillin 1 GM in Sodium Chloride 0.9% 50 ML IV SCH (23:28)
[2017-05-26] MEDS ORDERED: Acetaminophen 325 MG Tab PO PRN (23:32)
[2017-05-26] MEDS ORDERED: Magnesium Hydroxide 400 MG/5 ML Susp 30 ML Cup PO PRN (23:32)
[2017-05-26] MEDS ORDERED: Ibuprofen 600 MG Tab PO PRN (23:32)
[2017-05-26] MEDS ORDERED: Ondansetron 4 MG/2 ML SDV IVPUSH PRN (23:32)
[2017-05-26] MEDS ORDERED: Lactated Ringers 1,000 ML IV SCH (23:45)
--- NOTE | 2017-05-27 03:31 | HP ---
DATE OF : 1995 PRIMARY CARE PHYSICIAN: None PCP ADMITTING DIAGNOSIS: Endomyometritis. CHIEF COMPLAINT: Fever and aches. BRIEF HISTORY: This is a 21-year-old female she is G3, P2-0-1-2, she is now three days . She had an uncomplicated vaginal delivery on 05/23/2017 with a first degree perineal laceration. Notably, she did receive an MMR at the time of discharge from the hospital. Her hospitalization was otherwise unremarkable. She delivered a live-born female weighing 3650 g. score 7 and 9. In the last 24 hours, she has had muscle aches, fever, chills and in general feeling malaise. At the time of presentation to the emergency room, temperature was 101.1, pulse is 118, blood pressure 150/92. Her fundus is palpable approximately 3 cm below the umbilicus and is tender. After initial evaluation, Dr. Huang, the emergency room physician called me for consideration of admission. Her white count however is 8.7, but she does have four bands present. Urinalysis was negative and also negative for protein. She denies foul-smelling lochia. She has had only minimal bleeding. She is breast feeding. She denies any pain or tenderness that is significantly abnormal of her breast. She denies any sore throat, cough, chest pain, shortness of breath, or ear pain. PAST MEDICAL HISTORY: Significant for Berry's thyroiditis, now hypothyroid, and depression. PAST SURGICAL HISTORY: D and C in 2012. MEDICATIONS: vitamins and levothyroxine 25 mcg daily. FAMILY HISTORY: Significant for maternal grandfather with heart disease. SOCIAL HISTORY: She smoked prior to her . She does not currently smoke. She denies use of alcohol or street drugs. She is currently single and her younger sister is present for support. PAST OB HISTORY: She is G3, P2-0-1-2. ALLERGIES: She has no known drug allergies. REVIEW OF SYSTEMS: Negative for headache or visual changes. Negative for cough or shortness of breath. Negative for palpitations, although at times she feels like her heart is racing when she has a fever, this symptom improves when she takes ibuprofen. She denies nausea and vomiting. She has not had a bowel movement since her delivery and therefore feels that she is constipated. She does have back pain. She denies any dysuria. PHYSICAL EXAMINATION: VITAL SIGNS: Initial temperature was 38.4, current temperature is 37.2. Pulse of 118 and current pulse is 87. At the time of initial presentation, blood pressure was 150/92, currently is 135/67, respiratory rate is 18, O2 saturation is 98%. GENERAL: She is alert and oriented. She does not appear in acute distress. NECK: Supple without lymphadenopathy or thyromegaly. LUNGS: Clear bilaterally. CV: Regular rate without murmur. Bilateral breasts are lactating, but there is no erythema or masses. She does have some mild right CVA tenderness. ABDOMEN: Soft. Fundus is palpable 3 cm below the umbilicus and is quite tender. EXTREMITIES: Show trace edema. : External vulva appears normal. Vagina has no foul lochia. The cervix is closed. DIAGNOSTIC DATA: Cultures are obtained for routine vaginal culture as well as the Gen-Probe. LABORATORY STUDIES: Include, white blood cell count of 8.7, hemoglobin 13.3, hematocrit 38.3, platelet count is 207. Sodium 139, potassium 3.3, chloride 106, CO2 21, BUN 10, creatinine 0.8, glucose 110, calcium is 9.1, magnesium 1.4. AST 40, ALT 48, alkaline phosphatase 124. Urinalysis is negative except for small blood. ASSESSMENT AND PLAN: 1. day #3, after spontaneous vaginal delivery with suspected endomyometritis, will admit with IV antibiotics with ampicillin, gentamicin, and clindamycin. She may continue to breast feed at this time. We will monitor her temperature. She may require a short term hospitalization. If her fever resolves, due to normal white blood cell count, she may quickly be able to be transitioned to an outpatient situation. 2. Hypothyroidism. Continue levothyroxine 37.5 mg daily. CHRISTAL / MARCIA /[id number]
[2017-05-27] MEDS ORDERED: Clindamycin Phosphate in D5W 900 MG in Premix Bag 1 BAG IV SCH ×4 (04:00→06:00)
[2017-05-27] MEDS: Ampicillin 1 GM in Sodium Chloride 0.9% 50 ML IV SCH ×4 (04:33→22:35)
[2017-05-27] MEDS: Clindamycin Phosphate in D5W 900 MG in Premix Bag 1 BAG IV SCH ×6 (05:50→21:31)
[2017-05-27 06:12] LABS: CHLORIDE,CL 111 mmol/L (98-110); SODIUM,NA 141 mmol/L (136-146)
[2017-05-27] MEDS: Levothyroxine 25 MCG Tab PO SCH (06:59)
--- NOTE | 2017-05-27 08:57 | PCM.PN ---
- General Info Date of Service: 05/27/17 Functional Status: Reports: pain controlled, tolerating diet, ambulating, urinating - Review of Systems General: Reports: Fatigue. Denies: Fever, Weakness Pulmonary: Denies: shortness of breath Cardiovascular: Denies: Chest Pain, Palpitations, Lightheadedness Gastrointestinal: Reports: Abdominal pain (improved this morning). Denies: Nausea, Vomiting Genitourinary: Denies: dysuria, frequency, flank pain Psychiatric: Reports: no symptoms - Patient Data Vitals - most recent: Last Vital Signs Temp 37.4 C 05/27/17 06:00 Pulse 109 H 05/26/17 22:57 Resp 18 05/27/17 04:00 BP 131/75 05/27/17 04:00 Pulse Ox 100 05/27/17 04:00 Weight - most recent: 88 kg I&O - last 24 hours: Intake & Output 05/26/17 05/27/17 05/27/17 22:59 06:59 14:59 Intake Total 1406 Output Total 650 Balance 756 Lab Results last 24 hrs: Laboratory Results - last 24 hr 05/27/17 05/27/17 Range/Units 05:01 05:01 WBC 8.13 (4.0-11.0) K/uL RBC 3.77 L (4.30-5.90) M/uL Hgb 11.3 L (12.0-16.0) g/dL Hct 33.2 L (36.0-46.0) % MCV 88.1 (80.0-98.0) fL MCH 30.0 (27.0-32.0) pg MCHC 34.0 (31.0-37.0) g/dL RDW Std Deviation 44.4 (28.0-62.0) fl RDW Coeff of Adal 14 (11.0-15.0) % Plt Count 204 (150-400) K/uL MPV 9.80 (7.40-12.00) fL Add Manual Diff YES Neutrophils % (Manual) 65 (48.0-80.0) % Band Neutrophils % 1 % Lymphocytes % (Manual) 25 (16.0-40.0) % Monocytes % (Manual) 4 (0.0-15.0) % Eosinophils % (Manual) 5 (0.0-7.0) % Nucleated RBC % 0.0 /100WBC Absolute Seg Neuts 5.3 Band Neutrophils # 0.1 Lymphocytes # (Manual) 2.0 Monocytes # (Manual) 0.3 Eosinophils # (Manual) 0.4 Nucleated RBCs # 0 K/uL Sodium 141 (136-146) mmol/L Potassium 3.8 (3.5-5.1) mmol/L Chloride 111 H (98-110) mmol/L Carbon Dioxide 19 L (21-31) mmol/L BUN 10 (6.0-23.0) mg/dL Creatinine 0.7 (0.6-1.5) mg/dL Est Cr Clr Drug Dosing 95.13 mL/min Estimated GFR (MDRD) > 60.0 ml/min Glucose 129 H (60-110) mg/dL Calcium 8.3 L (8.8-10.8) mg/dL Med Orders - Current: Current Medications Acetaminophen (Tylenol) 650 mg PO Q4H PRN PRN Reason: Pain (mild 1-3) Diphenhydramine HCl (Benadryl) 25 mg IVPUSH Q6H PRN PRN Reason: Itching Gentamicin Sulfate 80 mg/ (Sodium Chloride) 52 mls @ 100 mls/hr IV Q8H [facility] Last Admin: 05/27/17 05:15 Dose: 100 mls/hr Ampicillin Sodium 1 gm/ Sodium (Chloride) 50 mls @ 100 mls/hr IV Q6H [facility] Last Admin: 05/27/17 04:33 Dose: 100 mls/hr Clindamycin Phosphate 900 mg/ (Premix) 50 mls @ 100 mls/hr IV Q8H [facility] Last Admin: 05/27/17 05:50 Dose: 100 mls/hr Ibuprofen (Motrin) 600 mg PO Q6H PRN PRN Reason: Pain (mild 1-3) Levothyroxine Sodium (Levothyroxine) 37.5 mcg PO ACBREAKFAST [facility] Last Admin: 05/27/17 06:59 Dose: 37.5 mcg Magnesium Hydroxide (Milk Of Magnesia) 30 ml PO Q6H PRN PRN Reason: Constipation Ondansetron HCl (Zofran) 4 mg IVPUSH Q6H PRN PRN Reason: Nausea/Vomiting Prenat Multivit/[place]/Iron/Folic Ac ( Mtr) 1 each PO DAILY [facility] Sodium Chloride (Saline Flush) 10 ml FLUSH ASDIRECTED PRN PRN Reason: Keep Vein Open Sodium Chloride (Saline Flush) 2.5 ml FLUSH ASDIRECTED PRN PRN Reason: Keep Vein Open Discontinued Medications Acetaminophen (Tylenol) 500 mg PO NOW ONE Stop: 05/26/17 19:54 Last Admin: 05/26/17 20:13 Dose: 500 mg Ampicillin Sodium (Ampicillin) 1,000 mg IVPUSH Q6H [facility] Last Admin: 05/27/17 00:46 Dose: Not Given Diphenhydramine HCl (Benadryl) 25 mg IVPUSH ONETIME ONE Stop: 05/26/17 20:06 Last Admin: 05/26/17 20:15 Dose: 25 mg Sodium Chloride (Normal Saline) 1,000 mls @ 500 mls/hr IV ASDIRECTED [facility] Last Admin: 05/26/17 20:13 Dose: 500 mls/hr Clindamycin Phosphate 300 mg/ (Sodium Chloride) 52 mls @ 100 mls/hr IV Q6H [facility] Last Admin: 05/27/17 00:47 Dose: Not Given Gentamicin Sulfate 80 mg/ (Sodium Chloride) 52 mls @ 100 mls/hr IV Q12H [facility] Last Admin: 05/27/17 00:47 Dose: Not Given Clindamycin Phosphate 300 mg/ (Premix) 50 mls @ 150 mls/hr IV ONETIME ONE Stop: 05/26/17 23:07 Last Admin: 05/26/17 22:52 Dose: 150 mls/hr Clindamycin Phosphate 900 mg/ (Premix) 50 mls @ 100 mls/hr IV Q8H [facility] Lactated Ringer's (Ringers, Lactated) 1,000 mls @ 125 mls/hr IV ASDIRECTED [facility] Last Admin: 05/27/17 00:23 Dose: 125 mls/hr Clindamycin Phosphate 900 mg/ (Premix) 50 mls @ 100 mls/hr IV Q8H [facility] Last Admin: 05/27/17 05:42 Dose: Not Given Lorazepam (Ativan) 1 mg IVPUSH ONETIME ONE Stop: 05/26/17 19:54 Last Admin: 05/27/17 00:46 Dose: Not Given - Exam General: alert, oriented Lungs: Clear to auscultation, Normal respiratory effort Cardiovascular: Regular Rate, Regular Rhythm Abdomen: bowel sounds present, soft, no tenderness Back Exam: No: CVA Tenderness (L), CVA Tenderness (R) Extremities: no edema - Problem List & Annotations (1) Endometritis following delivery SNOMED Code(s): 280151181 Code(s): O86.12 - ENDOMETRITIS FOLLOWING DELIVERY Status: Acute Current Visit: Yes - Problem List Review Problem List Initiated/Reviewed/Updated: Yes - Assessment Assessment:: Endometritis - Plan Plan:: Continue iv antibiotics, remains afebrile. Cultures pending. VS are stable, feeling better this morning. Ambulate halls. Given normal white count and remaining afebrile, will potentially plan 24 hours of antibiotics and discharge tomorrow with oral antibiotics.
[2017-05-27] MEDS: Prenatal Multivitamin and Multimineral with Iron Tab PO SCH ×2 (09:35→09:44)
[2017-05-27] MEDS ORDERED: Gentamicin 400 MG in Sodium Chloride 0.9% 50 ML IV SCH (13:00)
[2017-05-27] MEDS ORDERED: Prenatal Multivitamin and Multimineral with Iron Tab PO SCH (21:00)
[2017-05-28] MEDS: Ampicillin 1 GM in Sodium Chloride 0.9% 50 ML IV SCH ×2 (04:07→09:53)
[2017-05-28] MEDS: Clindamycin Phosphate in D5W 900 MG in Premix Bag 1 BAG IV SCH ×2 (05:30)
[2017-05-28] MEDS: Levothyroxine 25 MCG Tab PO SCH (07:17)
[2017-05-28 08:40] VITALS: BP 120/66
--- NOTE | 2017-05-28 10:40 | PCM.PNPP ---
- General Info Date of Service: 05/28/17 Functional Status: Reports: pain controlled, tolerating diet, ambulating, urinating - Review of Systems General: Reports: Other (crampy) HEENT: Reports: no symptoms Pulmonary: Reports: no symptoms Cardiovascular: Reports: No Symptoms Gastrointestinal: Reports: No symptoms Genitourinary: Reports: no symptoms Musculoskeletal: Reports: no symptoms Skin: Reports: no symptoms Neurological: Reports: No Symptoms Psychiatric: Reports: no symptoms - General Info Date of Service: 05/28/17 - Patient Data Vital Signs - most recent: Last Vital Signs Temp 35.9 C 05/28/17 08:00 Pulse 63 05/28/17 08:00 Resp 16 05/28/17 08:00 BP 120/66 05/28/17 08:00 Pulse Ox 98 05/28/17 08:00 Weight - most recent: 88 kg I&O - last 24 hours: Intake & Output 05/27/17 05/28/17 05/28/17 22:59 06:59 14:59 Intake Total 700 1400 50 Output Total 400 2000 Balance 300 -600 50 Lab Results - last 24 hrs: Laboratory Results - last 24 hr 05/27/17 Range/Units 18:00 WBC 8.01 (4.0-11.0) K/uL RBC 3.92 L (4.30-5.90) M/uL Hgb 11.7 L (12.0-16.0) g/dL Hct 34.9 L (36.0-46.0) % MCV 89.0 (80.0-98.0) fL MCH 29.8 (27.0-32.0) pg MCHC 33.5 (31.0-37.0) g/dL RDW Std Deviation 44.7 (28.0-62.0) fl RDW Coeff of Adal 14 (11.0-15.0) % Plt Count 214 (150-400) K/uL MPV 9.40 (7.40-12.00) fL Add Manual Diff YES Neutrophils % (Manual) 61 (48.0-80.0) % Band Neutrophils % 3 % Lymphocytes % (Manual) 25 (16.0-40.0) % Monocytes % (Manual) 4 (0.0-15.0) % Eosinophils % (Manual) 7 (0.0-7.0) % Nucleated RBC % 0.0 /100WBC Absolute Seg Neuts 4.9 Band Neutrophils # 0.2 Lymphocytes # (Manual) 2.0 Monocytes # (Manual) 0.3 Eosinophils # (Manual) 0.6 Nucleated RBCs # 0 K/uL Micro Results - last 24 hours: Microbiology 05/26/17 22:23 Genital Culture - Final Genital - Vagina NORMAL VAGINAL MAREN Med Orders - Current: Current Medications Acetaminophen (Tylenol) 650 mg PO Q4H PRN PRN Reason: Pain (mild 1-3) Diphenhydramine HCl (Benadryl) 25 mg IVPUSH Q6H PRN PRN Reason: Itching Ampicillin Sodium 1 gm/ Sodium (Chloride) 50 mls @ 100 mls/hr IV Q6H [facility] Last Admin: 05/28/17 09:53 Dose: 100 mls/hr Clindamycin Phosphate 900 mg/ (Premix) 50 mls @ 100 mls/hr IV Q8H [facility] Last Admin: 05/28/17 05:30 Dose: 100 mls/hr Gentamicin Sulfate 400 mg/ (Sodium Chloride) 60 mls @ 115.385 mls/hr IV Q24H [facility] Last Admin: 05/27/17 13:03 Dose: 115.385 mls/hr Ibuprofen (Motrin) 600 mg PO Q6H PRN PRN Reason: Pain (mild 1-3) Levothyroxine Sodium (Levothyroxine) 37.5 mcg PO ACBREAKFAST [facility] Last Admin: 05/28/17 07:17 Dose: 37.5 mcg Magnesium Hydroxide (Milk Of Magnesia) 30 ml PO Q6H PRN PRN Reason: Constipation Ondansetron HCl (Zofran) 4 mg IVPUSH Q6H PRN PRN Reason: Nausea/Vomiting Prenat Multivit/Help Desk Agent/Iron/Folic Ac ( Mtr) 1 each PO BEDTIME [facility] Last Admin: 05/27/17 21:30 Dose: 1 each Sodium Chloride (Saline Flush) 10 ml FLUSH ASDIRECTED PRN PRN Reason: Keep Vein Open Sodium Chloride (Saline Flush) 2.5 ml FLUSH ASDIRECTED PRN PRN Reason: Keep Vein Open Discontinued Medications Acetaminophen (Tylenol) 500 mg PO NOW ONE Stop: 05/26/17 19:54 Last Admin: 05/26/17 20:13 Dose: 500 mg Ampicillin Sodium (Ampicillin) 1,000 mg IVPUSH Q6H [facility] Last Admin: 05/27/17 00:46 Dose: Not Given Diphenhydramine HCl (Benadryl) 25 mg IVPUSH ONETIME ONE Stop: 05/26/17 20:06 Last Admin: 05/26/17 20:15 Dose: 25 mg Sodium Chloride (Normal Saline) 1,000 mls @ 500 mls/hr IV ASDIRECTED [facility] Last Admin: 05/26/17 20:13 Dose: 500 mls/hr Clindamycin Phosphate 300 mg/ (Sodium Chloride) 52 mls @ 100 mls/hr IV Q6H [facility] Last Admin: 05/27/17 00:47 Dose: Not Given Gentamicin Sulfate 80 mg/ (Sodium Chloride) 52 mls @ 100 mls/hr IV Q12H [facility] Last Admin: 05/27/17 00:47 Dose: Not Given Gentamicin Sulfate 80 mg/ (Sodium Chloride) 52 mls @ 100 mls/hr IV Q8H [facility] Last Admin: 05/27/17 05:15 Dose: 100 mls/hr Clindamycin Phosphate 300 mg/ (Premix) 50 mls @ 150 mls/hr IV ONETIME ONE Stop: 05/26/17 23:07 Last Admin: 05/26/17 22:52 Dose: 150 mls/hr Clindamycin Phosphate 900 mg/ (Premix) 50 mls @ 100 mls/hr IV Q8H [facility] Lactated Ringer's (Ringers, Lactated) 1,000 mls @ 125 mls/hr IV ASDIRECTED [facility] Last Admin: 05/27/17 00:23 Dose: 125 mls/hr Clindamycin Phosphate 900 mg/ (Premix) 50 mls @ 100 mls/hr IV Q8H [facility] Last Admin: 05/27/17 05:42 Dose: Not Given Lorazepam (Ativan) 1 mg IVPUSH ONETIME ONE Stop: 05/26/17 19:54 Last Admin: 05/27/17 00:46 Dose: Not Given Prenat Multivit/[place]/Iron/Folic Ac ( Mtr) 1 each PO DAILY [facility] Last Admin: 05/27/17 09:44 Dose: Not Given - Interaction Infant Disposition, : in Room with Family Interaction: Holding Infant Infant Feeding: Breastfed ; Nursed Well Support Person: Friend - Exam General: alert, oriented Neck: supple Lungs: Clear to auscultation, Normal respiratory effort Cardiovascular: Regular Rate, Regular Rhythm Abdomen: bowel sounds present, soft, tenderness (mild fundal tenderness but pt states it has improved since admission) Extremities: no calf tenderness Skin: warm, dry, intact Neurological: no new focal deficit Psy/Mental Status: alert, normal affect, normal mood - Problem List & Annotations (1) Endometritis SNOMED Code(s): 52313329 Code(s): N71.9 - INFLAMMATORY DISEASE OF UTERUS, UNSPECIFIED Status: Acute Current Visit: Yes - Problem List Review Problem List Initiated/Reviewed/Updated: Yes - Assessment Assessment:: HD#1 with endometritis Doing better Afebrile Desires discharge home today - Plan Plan:: Discharge home today with continued pelvic rest 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
== END 2017-05-28 11:30 | disposition home or self-care (01) | DRG 776 ==
LOC: MW.ED 19:28 → MW.MS 21:51
PROVIDERS: ADMIT Obstetrics & Gynecology; ATTEND Obstetrics & Gynecology
DX: O86.4 Pyrexia of unknown origin following delivery (principal); O86.12 Endometritis following delivery; F41.9 Anxiety disorder, unspecified; E03.9 Hypothyroidism, unspecified; Z87.891 Personal history of nicotine dependence; Z79.899 Other long term (current) drug therapy
CPT/HCPCS: 36415; 80053; 81001; 83735; 85025; 87040 ×2; 93005; 96361; 96374; 99285; A9270; J1200; J7040; 80048; 87070; 87491; 87591; 96375; J0290; J1580; J7050; J7120

== ENCOUNTER 2018-04-04 06:35 | Day surgery (SDC) | payer MEDICAID ==
[2018-04-04] MEDS ORDERED: Lidocaine 2% 5 ML SDV ONE (07:13)
[2018-04-04] MEDS ORDERED: Midazolam 1 MG/ML 2 ML SDV ONE (07:14)
[2018-04-04] MEDS ORDERED: Propofol 200 MG/20 ML SDV ONE (07:14)
[2018-04-04] MEDS ORDERED: fentaNYL 100 MCG/2 ML SDV ONE (07:14)
--- NOTE | 2018-04-04 07:25 | PCM.PREANE ---
Preanesthetic Assessment - Anesthesia/Transfusion/Family Hx Anesthesia History: Prior Anesthesia Without Reaction Family History of Anesthesia Reaction: No Transfusion History: No Prior Transfusion(s) Intubation History: Unknown - Review of Systems General: No Symptoms Pulmonary: No Symptoms Cardiovascular: No Symptoms Gastrointestinal: No Symptoms Neurological: No Symptoms Other: Reports: None - Physical Assessment O2 Sat by Pulse Oximetry: 97 Respiratory Rate: 16 Vital Signs: Last Vital Signs Temp 36.9 C 04/04/18 07:05 Pulse 65 04/04/18 07:05 Resp 16 04/04/18 07:05 BP 122/71 04/04/18 07:05 Pulse Ox 97 04/04/18 07:05 Weight: 86.636 kg ASA Class: 2 Mental Status: Alert & Oriented x3 Airway Class: Mallampati = 2 Dentition: Reports: Normal Dentition Thyro-Mental Finger Breadths: 3 Mouth Opening Finger Breadths: 3 ROM/Head Extension: Full Lungs: Clear to Auscultation, Normal Respiratory Effort Cardiovascular: Regular Rate, Regular Rhythm - Allergies Allergies/Adverse Reactions: Allergies Allergy/AdvReac Type Severity Reaction Status Date / Time No Known Allergies Allergy Verified 04/12/17 15:56 - Blood Blood Available: No - Anesthesia Plan Pre-Op Medication Ordered: None - Acknowledgements Anesthesia Type Planned: General Anesthesia Pt an Appropriate Candidate for the Planned Anesthesia: Yes Alternatives and Risks of Anesthesia Discussed w Pt/Guardian: Yes Pt/Guardian Understands and Agrees with Anesthesia Plan: Yes PreAnesthesia Questionnaire HEENT History: Reports: None Cardiovascular History: Reports: None Respiratory History: Reports: None Gastrointestinal History: Reports: None Genitourinary History: Reports: None 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: , 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 Musculoskeletal History: Reports: None Neurological History: Reports: None Psychiatric History: Reports: Anxiety, Depression Endocrine/Metabolic History: Reports: Hypothyroidism, Other (See Below) Other Endocrine/Metabolic History: Hasimotos tyroiditis Hematologic History: Reports: None Immunologic History: Reports: Other (See Below) Other Immunologic History: Hashimotos disease Oncologic (Cancer) History: Reports: None Dermatologic History: Reports: None - Infectious Disease History Infectious Disease History: Reports: None - Past Surgical History Head Surgeries/Procedures: Reports: None Female Surgical History: Reports: D&C - SUBSTANCE USE Smoking Status *Q: Current Every Day Smoker (from few cigarettes to a pack per day) Tobacco Use Within Last Twelve Months: Cigarettes Second Hand Smoke Exposure: Yes Days Per Week of Alcohol Use: 0 Number of Drinks Per Day: 15 Total Drinks Per Week: 0 Recreational Drug Use History: No Recreational Drug Type: Reports: Methamphetamine Recreational Drug Last Use: 06/25/2016 - HOME MEDS Home Medications: Home Meds Levothyroxine 37.5 mcg PO ACBREAKFAST 05/22/17 [History] Vit W-Ca,Fe,FA(<1 mg) [ Vitamins] 1 tab PO BEDTIME 05/22/17 [ History] - CURRENT (IN HOUSE) MEDS Current Meds: Current Medications Discontinued Medications Fentanyl (Sublimaze) Confirm Administered Dose 200 mcg .ROUTE .STK-MED ONE Stop: 04/04/18 07:15 Lidocaine (Xylocaine-Mpf 2%) Confirm Administered Dose 10 ml .ROUTE .STK-MED ONE Stop: 04/04/18 07:14 Midazolam HCl (Versed 1 Mg/Ml) Confirm Administered Dose 2 mg .ROUTE .STK-MED ONE Stop: 04/04/18 07:15 Propofol (Diprivan 20 Ml) Confirm Administered Dose 400 mg .ROUTE .STK-MED ONE Stop: 04/04/18 07:15
[2018-04-04] MEDS ORDERED: Oxytocin 10 Units/1 ML SDV ONE (07:56)
--- NOTE | 2018-04-04 08:18 | PCM.OPNOTE ---
- General Post-Op/Procedure Note Date of Surgery/Procedure: 04/04/18 Operative Procedure(s): Suction D&C Findings: Scant products of conception Pre Op Diagnosis: Abnormally rising quant hcg level. Spontaneous vs ectopic Post-Op Diagnosis: Same Anesthesia Technique: General LMA Primary Surgeon: Jie Jamison Pathology: PRoducts of conception for frozen analysis Fluid Replacement, Intraop: 400 EBL in mLs: 30 Complications: None known Condition: Good Free Text/Narrative:: Dictation [id number]
[2018-04-04] MEDS ORDERED: fentaNYL 100 MCG/2 ML SDV IVPUSH PRN (08:26)
--- NOTE | 2018-04-04 08:49 | PCM.POSTAN ---
POST ANESTHESIA ASSESSMENT - MENTAL STATUS Mental Status: Alert - RESPIRATORY Respiratory Status: Respiratory Rate WNL, Airway Patent, O2 Saturation Stable - CARDIOVASCULAR CV Status: Pulse Rate WNL, Blood Pressure Stable - GASTROINTESTINAL GI Status: No Symptoms - PAIN Pain Score: 3 - POST OP HYDRATION Hydration Status: Adequate & Stable - OBSERVATIONS Free Text/Narrative:: no anesthesia problems
--- NOTE | 2018-04-04 09:13 | OR ---
SURGEON: Jie Jamison M.D. DATE OF PROCEDURE: 04/04/2018 PREOPERATIVE DIAGNOSIS: Abnormally rising quantitative human chorionic gonadotropin levels. POSTOPERATIVE DIAGNOSIS: Ectopic PROCEDURES PERFORMED: Suction dilation and curettage. ANESTHESIA: General LMA. ESTIMATED BLOOD LOSS: 30 mL. FLUIDS: 400 mL crystalloid. COMPLICATIONS: None. FINDINGS: Scant amount of products of conception. DISPOSITION: The patient to PACU, stable. SPECIMEN: Pathology. PROCEDURE IN DETAIL: She is a 22-year-old A1, who has been followed closely in clinic with abnormally rising quant HCG levels and a low progesterone. At this juncture in order to help further determine whether this is actually an early miscarriage or ectopic , we have elected to proceed with D and C to evaluate for chorionic villi within the uterine cavity. The risks of procedure have been discussed with the patient. Proper consent obtained. The patient was taken to the operating room, where she underwent general LMA and was placed in modified dorsal lithotomy position, prepped and draped in the usual sterile fashion. SCDs to lower extremities. Bladder was drained. Time- out was performed. Speculum was introduced in the vagina. Anterior lip of cervix was grasped with an Allis clamp. The cervix was gently dilated to 8 mm. Using an 8 mm curved curette, suction was applied, and the uterine cavity was cleared of products of conception. Gentle sharp curettage was now performed and felt that the uterine cavity was adequately evacuated. This specimen will go to Pathology for frozen analysis to evaluate for chorionic villi. If present, this is indicative of an early miscarriage. If absent, we will proceed with treatment for ectopic with methotrexate. The patient tolerated the procedure well overall. She will go to PACU in stable condition. All instruments were removed from the vagina. Hemostasis was evident. Sponge count and instrument count were correct. Dr Jang notified me there is no chorionic villi in the frozen specimen. Proceed with methotrexate treatment of presumptive ectopic. JADA / MARCIA /[id number] STEFFI
[2018-04-04 09:34] LABS: CHLORIDE,CL 107 mmol/L (98-107); SODIUM,NA 139 mmol/L (136-145)
[2018-04-04 09:40] VITALS: BP 112/68
== END 2018-04-04 10:42 | disposition home or self-care (01) ==
LOC: MW.SDS 06:35
PROVIDERS: ATTEND Obstetrics & Gynecology
DX: O02.81 Inappropriate change in quantitative human chorionic gonadotropin (hCG) in early pregnancy (principal); F32.9 Major depressive disorder, single episode, unspecified; E06.3 Autoimmune thyroiditis; F17.210 Nicotine dependence, cigarettes, uncomplicated; Z79.899 Other long term (current) drug therapy
CPT/HCPCS: 36415; 59899; 80053; 84702; 85027; 88305; 88331; J2250; J2590; J3010; J2704

== ENCOUNTER 2018-04-25 02:01 | Emergency (ER) | payer MEDICAID ==
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
[2018-04-25 03:15] LABS: CHLORIDE,CL 105 mmol/L (98-107); SODIUM,NA 142 mmol/L (136-145)
[2018-04-25 04:06] VITALS: BP 103/50
--- NOTE | 2018-04-25 16:51 | CR ---
EXAM DATE: 04/25/18 PATIENT'S AGE: 22 Patient: RUTH HORVATH Facility: [place], [place] Site . Site : 1995 Study: XRay Chest [id number]/29/2018 2:49:02 AM Ordering Physician: Den Bower Final Report: INDICATION: Cough TECHNIQUE: Single view chest. FINDINGS: The lungs are clear. The heart, mediastinum and pulmonary vessels are of normal size. There is no evidence of pleural disease. IMPRESSION: Negative chest. Dictated by Jessi Houston MD @ Apr 25 2018 3:58AM (Electronic Signature) Report Signed by Proxy. STEFFI
== END 2018-04-25 05:05 ==
LOC: MW.ED 02:01
DX: R45.851 Suicidal ideations (principal); E03.9 Hypothyroidism, unspecified; F17.210 Nicotine dependence, cigarettes, uncomplicated
CPT/HCPCS: 36415; 71045; 71045-26; 80053; 80305; 81001; 81025; 84443; 85025; 99284; 99285

== ENCOUNTER 2018-12-18 14:36 | Emergency (ER) | payer SELFPAY ==
[2018-12-18 14:56] VITALS: BP 131/63
--- NOTE | 2018-12-18 15:56 | EDM.PDOC ---
ED HPI GENERAL MEDICAL PROBLEM - General Chief Complaint: Eye Problems Stated Complaint: EYE PROBLEMS Time Seen by Provider: 12/18/18 15:49 - History of Present Illness INITIAL COMMENTS - FREE TEXT/NARRATIVE: HISTORY AND PHYSICAL: History of present illness: Patient 23-year-old female presents with a concern of irritation to her right eye has been itchy and somewhat red. This been for 2 days she denies fever chills nausea vomiting, visual disturbance or other concern Review of systems: As per history of present illness and below otherwise all systems reviewed and negative. Past medical history: As per history of present illness and as reviewed below otherwise noncontributory. Surgical history: As per history of present illness and as reviewed below otherwise noncontributory. Social history: No reported history of drug or alcohol abuse. Family history: As per history of present illness and as reviewed below otherwise noncontributory. Physical exam: HEENT: Atraumatic, normocephalic, pupils reactive, injected conjunctival, mucous membranes moist, throat clear, neck supple, nontender, trachea midline. Lungs: Clear to auscultation, breath sounds equal bilaterally, chest nontender. Heart: S1S2, regular, negative for clicks, rubs, or JVD. Abdomen: Soft, nondistended, nontender. Negative for masses or hepatosplenomegaly. Negative for costovertebral tenderness. Pelvis: Stable nontender. Genitourinary: Deferred. Rectal: Deferred. Extremities: Atraumatic, negative for cords or calf pain. Neurovascular unremarkable. Neuro: Awake, alert, oriented. Cranial nerves II through XII unremarkable. Cerebellum unremarkable. Motor and sensory unremarkable throughout. Exam nonfocal. Diagnostics: None Therapeutics: None Impression: #1 conjunctivitis Definitive disposition and diagnosis as appropriate pending reevaluation and review of above. 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 Musculoskeletal History: Reports: None Neurological History: Reports: None Psychiatric History: Reports: Anxiety, Depression Endocrine/Metabolic History: Reports: Hypothyroidism, Other (See Below) Other Endocrine/Metabolic History: Berry's thyroiditis Hematologic History: Reports: None Immunologic History: Reports: Other (See Below) Other Immunologic History: Hashimotos disease Oncologic (Cancer) History: Reports: None Dermatologic History: Reports: None - Infectious Disease History Infectious Disease History: Reports: None - Past Surgical History Head Surgeries/Procedures: Reports: None Female Surgical History: Reports: D&C Social & Family History - Family History Family Medical History: Noncontributory Cardiac: Reports: Pacemaker Respiratory: Reports: Asthma OBGYN: Reports: Neurological: Reports: CVA Endocrine/Metabolic: Reports: Diabetes, type II Oncologic: Reports: Colon - Tobacco Use Smoking Status *Q: Current Every Day Smoker Years of Tobacco use: 8 Packs/Tins Daily: 0.5 - Caffeine Use Caffeine Use: Reports: Coffee, Energy Drinks, Soda, Tea - Recreational Drug Use Recreational Drug Use: No ED ROS GENERAL - Review of Systems Review Of Systems: ROS reveals no pertinent complaints other than HPI. ED EXAM GENERAL W FULL EYE - Physical Exam Exam: See Below Course - Vital Signs Last Recorded V/S: Last Vital Signs Temp 37.1 C 12/18/18 14:53 Pulse 87 12/18/18 14:53 Resp 16 12/18/18 14:53 BP 131/63 12/18/18 14:53 Pulse Ox 98 12/18/18 14:53 Departure - Departure Time of Disposition: 15:55 Disposition: Home, Self-Care 01 Condition: Good Clinical Impression: Conjunctivitis - Discharge Information Referrals: PCP,None [Primary Care Provider] - Additional Instructions: The following information is given to patients seen in the emergency department who are being discharged to home. This information is to outline your options for follow-up care. We provide all patients seen in our emergency department with a follow-up referral. The need for follow-up, as well as the timing and circumstances, are variable depending upon the specifics of your emergency department visit. If you don't have a primary care physician on staff, we will provide you with a referral. We always advise you to contact your personal physician following an emergency department visit to inform them of the circumstance of the visit and for follow-up with them and/or the need for any referrals to a consulting specialist. The emergency department will also refer you to a specialist when appropriate. This referral assures that you have the opportunity for followup care with a specialist. All of these measure are taken in an effort to provide you with optimal care, which includes your followup. Under all circumstances we always encourage you to contact your private physician who remains a resource for coordinating your care. When calling for followup care, please make the office aware that this follow-up is from your recent emergency room visit. If for any reason you are refused follow-up, please contact the [facility] emergency department at and asked to speak to the emergency department charge nurse. Tobrex as prescribed follow-up primary medical doctor as needed as discussed and return as needed as discussed
== END 2018-12-18 16:09 | disposition home or self-care (01) ==
LOC: MW.ED 14:36
DX: H10.9 Unspecified conjunctivitis (principal)
CPT/HCPCS: 99282

== ENCOUNTER 2019-03-12 10:58 | Emergency (ER) | payer MEDICAID ==
[2019-03-12 12:30] LABS: CHLORIDE,CL 105 mmol/L (98-107); SODIUM,NA 140 mmol/L (136-145)
--- NOTE | 2019-03-12 13:11 | EDM.PDOC ---
ED HPI GENERAL MEDICAL PROBLEM - General Chief Complaint: Gastrointestinal Problem Stated Complaint: BLOOD IN STOOL Time Seen by Provider: 03/12/19 11:29 Source of Information: Reports: Patient History Limitations: Reports: No Limitations - History of Present Illness INITIAL COMMENTS - FREE TEXT/NARRATIVE: HISTORY AND PHYSICAL: History of present illness: Patient is a 23-year-old female who presents to the emergency room with complaints of rectal bleeding. She states that she took a test 4 over the weekend, all of which were positive. She is concerned she may have a hemorrhoid she has had moderate amount of blood after each stool. Patient is , P:2. Believes she is 5 weeks gestation. Denies any vaginal bleeding and cramping. No OB concerns, but does want to confirm . Patient denies any fever, chills, headache, change in vision, syncope or near syncope. Denies any chest pain, back pain, shortness of breath or cough. Denies any abdominal pain, nausea, vomiting, diarrhea, constipation or dysuria. Has not noted any blood in urine. Patient has been eating and drinking appropriately. Review of systems: As per history of present illness and below otherwise all systems reviewed and negative. Past medical history: As per history of present illness and as reviewed below otherwise noncontributory. Surgical history: As per history of present illness and as reviewed below otherwise noncontributory. Social history: See social history for further information Family history: As per history of present illness and as reviewed below otherwise noncontributory. Physical exam: General: Well-developed and well-nourished 23-year-old female. Alert and oriented. Nontoxic appearing and in no acute distress. HEENT: Atraumatic, normocephalic, pupils equal and reactive bilaterally, negative for conjunctival pallor or scleral icterus, mucous membranes moist, TMs normal bilaterally, throat clear, neck supple, nontender, trachea midline. No drooling or trismus noted. No meningeal signs. No hot potato voice noted. Lungs: Clear to auscultation, breath sounds equal bilaterally, chest nontender. Heart: S1S2, regular rate and rhythm without overt murmur Abdomen: Soft, nondistended, nontender. Negative for masses or hepatosplenomegaly. Negative for costovertebral tenderness. Pelvis: Stable nontender. Genitourinary: Deferred. Rectal: This was done with consent and a plant and maintenance technician at the bedside. Patient does have external hemorrhoids noted, no current bleeding. Hemoccult was negative. Good rectal tone. Skin: Intact, warm, dry. No lesions or rashes noted. Extremities: Atraumatic, moves all extremities per self with difficulty or deficits, negative for cords or calf pain. Neurovascular unremarkable. Neuro: Awake, alert, oriented. Cranial nerves II through XII unremarkable. Cerebellum unremarkable. Motor and sensory unremarkable throughout. Exam nonfocal. Notes: Lab work is unremarkable. Patient states that she has had blood after stools and is concerned as she has had positive tests at home. She states she does know that she has hemorrhoids, has not taken anything [id number] for these. She does not have any abdominal pain, cramping or vaginal bleeding. We discussed modalities of imaging, declines at this time. Hemoccult was negative. She does have an appointment for March 2019 to see the PHYSICIAN RELATIONS SPECIALIST for care area and encouraged her to keep this appointment. Supportive care measures were reviewed and discussed. Voices understanding and is agreeable to plan of care. Denies any further questions or concerns at this time. Diagnostics: CBC, CMP, Serum HCG Therapeutics: Rectal exam Prescription: Tucks (OTC) Impression: Hemorrhoids, external Plan: 1. Use a Colace to soften your stool, to avoid straining. May use the Tucks as needed and as directed for hemorrhoid pain. 2. Positive test today. Follow up with your OBGYN provider to receive care, as you already have arranged. 3. Return to the ED as needed as discussed. Definitive disposition and diagnosis as appropriate pending reevaluation and review of above. - Related Data Allergies Allergy/AdvReac Type Severity Reaction Status Date / Time latex Allergy Rash Verified 03/12/19 11:33 Home Meds: Home Meds Multivitamin [Multivitamins] 1 tab PO DAILY 12/18/18 [History] Jasbir Cervantes [Tucks] 1 pad TOP ASDIRECTED #1 box 03/12/19 [Rx] Past Medical History HEENT History: Reports: None Cardiovascular History: Reports: None Respiratory History: Reports: None Gastrointestinal History: Reports: None Genitourinary History: Reports: None PHYSICIAN RELATIONS SPECIALIST History: Reports: , Spontaneous Musculoskeletal History: Reports: None Neurological History: Reports: None Psychiatric History: Reports: Anxiety, Depression Endocrine/Metabolic History: Reports: Hypothyroidism, Other (See Below) Other Endocrine/Metabolic History: Berry's thyroiditis Hematologic History: Reports: None Immunologic History: Reports: Other (See Below) Other Immunologic History: Hashimotos disease Oncologic (Cancer) History: Reports: None Dermatologic History: Reports: None - Infectious Disease History Infectious Disease History: Reports: None - Past Surgical History Head Surgeries/Procedures: Reports: None Female Surgical History: Reports: D&C Social & Family History - Family History Family Medical History: Noncontributory Cardiac: Reports: Pacemaker Respiratory: Reports: Asthma OBGYN: Reports: Neurological: Reports: CVA Endocrine/Metabolic: Reports: Diabetes, type II Oncologic: Reports: Colon - Tobacco Use Smoking Status *Q: Current Every Day Smoker Years of Tobacco use: 6 Packs/Tins Daily: 0.1 - Caffeine Use Caffeine Use: Reports: Coffee, Energy Drinks, Soda, Tea - Recreational Drug Use Recreational Drug Use: No ED ROS GENERAL - Review of Systems Review Of Systems: ROS reveals no pertinent complaints other than HPI. ED EXAM, GI/ABD - Physical Exam Exam: See Below (See dictation) Course - Vital Signs Last Recorded V/S: Last Vital Signs Temp Pulse 100 03/12/19 11:31 Resp 18 03/12/19 11:31 BP 147/76 H 03/12/19 11:31 Pulse Ox 98 03/12/19 11:31 - Orders/Labs/Meds Orders: Active Orders 24 hr Category Date Time Status OCCULT BLOOD DIAGNOSTIC [OP] Stat Lab 03/12/19 12:08 Ordered Labs: Laboratory Tests 03/12/19 03/12/19 03/12/19 Range/Units 11:37 11:37 11:37 WBC 7.28 (4.0-11.0) K/uL RBC 4.73 (4.30-5.90) M/uL Hgb 14.3 (12.0-16.0) g/dL Hct 41.8 (36.0-46.0) % MCV 88.4 (80.0-98.0) fL MCH 30.2 (27.0-32.0) pg MCHC 34.2 (31.0-37.0) g/dL RDW Std Deviation 41.0 (28.0-62.0) fl RDW Coeff of Adal 13 (11.0-15.0) % Plt Count 302 (150-400) K/uL MPV 9.90 (7.40-12.00) fL Neut % (Auto) 60.3 (48.0-80.0) % Lymph % (Auto) 30.6 (16.0-40.0) % [place] % (Auto) 4.7 (0.0-15.0) % Eos % (Auto) 4.1 (0.0-7.0) % Baso % (Auto) 0.3 (0.0-1.5) % Neut # (Auto) 4.4 (1.4-5.7) K/uL Lymph # (Auto) 2.2 (0.6-2.4) K/uL H[place] # (Auto) 0.3 (0.0-0.8) K/uL Eos # (Auto) 0.3 (0.0-0.7) K/uL Baso # (Auto) 0.0 (0.0-0.1) K/uL Nucleated RBC % 0.0 /100WBC Nucleated RBCs # 0 K/uL Sodium 140 (136-145) mmol/L Potassium 3.8 (3.5-5.1) mmol/L Chloride 105 (98-107) mmol/L Carbon Dioxide 25.7 (21.0-32.0) mmol/L BUN 12 (7.0-18.0) mg/dL Creatinine 0.8 (0.6-1.0) mg/dL Est Cr Clr Drug Dosing 81.82 mL/min Estimated GFR (MDRD) > 60.0 ml/min Glucose 112 H (74-106) mg/dL Calcium 8.7 (8.5-10.1) mg/dL Total Bilirubin 0.2 (0.2-1.0) mg/dL AST 13 L (15-37) IU/L ALT 25 (14-63) IU/L Alkaline Phosphatase 62 (46-116) U/L Total Protein 7.6 (6.4-8.2) g/dL Albumin 4.0 (3.4-5.0) g/dL Globulin 3.6 (2.6-4.0) g/dL Albumin/Globulin Ratio 1.1 (0.9-1.6) HCG, Qual POSITIVE H (NEG) Departure - Departure Time of Disposition: 13:22 Disposition: Home, Self-Care 01 Clinical Impression: External hemorrhoid - Discharge Information Prescriptions: Jasbir Helen [Tucks] 1 pad TOP ASDIRECTED #1 box Instructions: Hemorrhoids, [id number] Referrals: PCP,Unknown [Primary Care Provider] - Forms: ED Department Discharge Additional Instructions: The following information is given to patients seen in the emergency department who are being discharged to home. This information is to outline your options for follow-up care. We provide all patients seen in our emergency department with a follow-up referral. The need for follow-up, as well as the timing and circumstances, are variable depending upon the specifics of your emergency department visit. If you don't have a primary care physician on staff, we will provide you with a referral. We always advise you to contact your personal physician following an emergency department visit to inform them of the circumstance of the visit and for follow-up with them and/or the need for any referrals to a consulting specialist. The emergency department will also refer you to a specialist when appropriate. This referral assures that you have the opportunity for follow-up care with a specialist. All of these measure are taken in an effort to provide you with optimal care, which includes your follow-up. Under all circumstances we always encourage you to contact your private physician who remains a resource for coordinating your care. When calling for follow-up care, please make the office aware that this follow-up is from your recent emergency room visit. If for any reason you are refused follow-up, please contact the [facility] Emergency Department at and asked to speak to the emergency department charge nurse. [facility] [address] [place] [id number] [address] 1. Use a Colace to soften your stool, to avoid straining. May use the Tucks as needed and as directed for hemorrhoid pain. 2. Positive test today. Follow up with your OBGYN provider to receive care, as you already have arranged. 3. Return to the ED as needed as discussed. - My Orders Last 24 Hours: My Active Orders 03/12/19 12:08 OCCULT BLOOD DIAGNOSTIC [OP] Stat - Assessment/Plan Last 24 Hours: My Active Orders 03/12/19 12:08 OCCULT BLOOD DIAGNOSTIC [OP] Stat
[2019-03-12 13:38] VITALS: BP 125/69
== END 2019-03-12 13:39 | disposition home or self-care (01) ==
LOC: MW.ED 10:58
DX: O22.41 Hemorrhoids in pregnancy, first trimester (principal); F17.210 Nicotine dependence, cigarettes, uncomplicated; Z79.899 Other long term (current) drug therapy; Z91.040 Latex allergy status; Z3A.01 Less than 8 weeks gestation of pregnancy
CPT/HCPCS: 36415; 80053; 84703; 85025; 99283

== ENCOUNTER 2019-11-09 06:39 | Inpatient (IN) | payer MEDICAID ==
[2019-11-09] MEDS ORDERED: Sodium Chloride 0.9% 2.5 ML Syringe FLUSH PRN (19:14)
[2019-11-09] MEDS ORDERED: Sodium Chloride 0.9% 10 ML Syringe FLUSH PRN (19:14)
[2019-11-09] MEDS ORDERED: Nalbuphine 10 MG/1 ML Vial IVPUSH PRN (19:14)
[2019-11-09] MEDS ORDERED: Carboprost Tromethamine 250 MCG/1 ML Amp IM PRN (19:14)
[2019-11-09] MEDS ORDERED: Terbutaline 1 MG/ML SDV SUBCUT PRN (19:14)
[2019-11-09] MEDS ORDERED: Tranexamic Acid 1,000 MG in Sodium Chloride 0.9% 100 ML IV PRN (19:14)
[2019-11-09] MEDS ORDERED: Sodium Chloride 0.9% 10 ML SDV IV PRN (19:14)
[2019-11-09] MEDS ORDERED: Butorphanol 1 MG/ML SDV IVPUSH PRN (19:14)
[2019-11-09] MEDS ORDERED: Ondansetron 4 MG/2 ML SDV IVPUSH PRN (19:14)
[2019-11-09] MEDS ORDERED: Lidocaine 1% 50 ML MDV INJECT PRN (19:14)
[2019-11-09] MEDS ORDERED: Water For Irrigation,Sterile 1,000 ML Container IRR PRN (19:14)
[2019-11-09] MEDS ORDERED: Misoprostol 200 MCG Tab PO PRN (19:14)
[2019-11-09] MEDS ORDERED: Methylergonovine 0.2 MG/1 ML Amp IM PRN (19:14)
[2019-11-09] MEDS ORDERED: Oxytocin/0.9 % Sodium Chloride 30 UNIT/500 ML BAG IV SCH ×2 (19:15)
--- NOTE | 2019-11-09 19:50 | PCM.LDHP ---
L&D History of Present Illness - General Date of Service: 11/09/19 Admit Problem/Dx: Patient Status Order with Admit Dx/Problem 11/09/19 19:14 Patient Status [ADT] Routine Admission Diagnosis/Problem Admission Diagnosis/Problem 11/09/19 19:38 24yo EDC 11/15/2019 39 1/7wks IOL for term, O+, RI, GBS neg. Followed by me in the clinic. - History of Present Illness Improves with: Reports: None Worsens with: Reports: None Associated Symptoms: Reports: N - Related Data Allergies/Adverse Reactions: Allergies Allergy/AdvReac Type Severity Reaction Status Date / Time latex Allergy Rash Verified 11/09/19 19:01 Home Medications: Home Meds Pnv No.95/Ferrous Fum/Folic AC [ Tablet] 1 tab PO DAILY 11/09/19 [ History] Past Medical History HEENT History: Reports: None Cardiovascular History: Reports: None Respiratory History: Reports: None Gastrointestinal History: Reports: None Genitourinary History: Reports: None GEM CUTTER History: Reports: , Spontaneous Musculoskeletal History: Reports: None Neurological History: Reports: None Psychiatric History: Reports: Anxiety, Depression Endocrine/Metabolic History: Reports: Hypothyroidism, Other (See Below) Other Endocrine/Metabolic History: Berry's thyroiditis Hematologic History: Reports: None Immunologic History: Reports: Other (See Below) Other Immunologic History: Hashimotos disease Oncologic (Cancer) History: Reports: None Dermatologic History: Reports: None - Infectious Disease History Infectious Disease History: Reports: None - Past Surgical History Head Surgeries/Procedures: Reports: None Female Surgical History: Reports: D&C Social & Family History - Family History Family Medical History: Noncontributory Cardiac: Reports: Pacemaker Respiratory: Reports: Asthma OBGYN: Reports: Neurological: Reports: CVA Endocrine/Metabolic: Reports: Diabetes, type II Oncologic: Reports: Colon - Caffeine Use Caffeine Use: Reports: Coffee, Energy Drinks, Soda, Tea H&P Review of Systems - Review of Systems: Review Of Systems: See Below General: Reports: No Symptoms HEENT: Reports: No Symptoms Pulmonary: Reports: No Symptoms Cardiovascular: Reports: No Symptoms Gastrointestinal: Reports: No Symptoms Genitourinary: Reports: No Symptoms Musculoskeletal: Reports: No Symptoms Skin: Reports: No Symptoms Psychiatric: Reports: No Symptoms Neurological: Reports: No Symptoms Hematologic/Lymphatic: Reports: No Symptoms Immunologic: Reports: No Symptoms L&D Exam - Exam Exam: See Below - Vital Signs Weight: 97.522 kg - OB Specific Contraction Intensity: Mild Movement: Active Heart Tones: Present Heart Tones per Min: 145 Heart Rate (FHR) Variability: Moderate (6-25 bmp) Presentation: Vertex - Dumont Score Dumont Score Cervix Position: Midposition Dumont Score Consistency: Soft Dumont Score Effacement: >80% Dumont Score Dilation: 3-4 cm Dumont Score Infant's Station: -2 Dumont Score Total: 9 - Exam General: Alert, Oriented, Cooperative HEENT: Hearing Intact Lungs: Clear to Auscultation, Normal Respiratory Effort Cardiovascular: Regular Rate, Regular Rhythm, Normal S1, Normal S2 GI/Abdominal Exam: Soft, Non-Tender, Pelvis Stable Rectal Exam: Deferred Genitourinary: Normal external exam, Normal bimanual exam, Cervical dilitation. No: Vaginal bleeding Back Exam: Normal Inspection, Full Range of Motion Extremities: Normal Inspection, Normal Range of Motion, Non-Tender, No Pedal Edema Skin: Warm, Dry, Intact Neurological: Cranial Nerves Intact, Strength Equal Bilateral, Normal Gait, Normal Speech, Normal Tone, Sensation Intact Psychiatric: Alert, Normal Affect, Normal Mood - Problem List (1) Supervision of normal IUP (intrauterine ) in multigravida SNOMED Code(s): 210053918, 664296938, 514941112 ICD Code: Z34.80 - ENCOUNTER FOR SUPRVSN OF NORMAL , UNSP TRIMESTER Status: Acute Priority: High Current Visit: Yes Qualifiers: Trimester: third trimester Qualified Code(s): Z34.83 - Encounter for supervision of other normal , third trimester Problem List Initiated/Reviewed/Updated: Yes Orders Last 24hrs: Active Orders 24 hr Category Date Time Status Patient Status [ADT] Routine ADT 11/09/19 19:14 Active Bedrest Bathroom Privileges [RC] ASDIRECTED Care 11/09/19 19:14 Active Communication Order [RC] ASDIRECTED Care 11/09/19 19:14 Active Communication Order [RC] ASDIRECTED Care 11/09/19 19:14 Active Heart Tones [RC] CONTINUOUS Care 11/09/19 19:14 Active Non Stress Test [RC] PER UNIT ROUTINE Care 11/09/19 19:14 Active May Shower [RC] ASDIRECTED Care 11/09/19 19:14 Active Notify Provider [RC] PRN Care 11/09/19 19:14 Active Notify Provider [RC] PRN Care 11/09/19 19:14 Active Oxygen Therapy [RC] ASDIRECTED Care 11/09/19 19:14 Active Up ad Arlene [RC] ASDIRECTED Care 11/09/19 19:14 Active Vaginal Exam [RC] PRN Care 11/09/19 19:14 Active Vaginal Exam [RC] PRN Care 11/09/19 19:14 Active Vital Signs [RC] PER UNIT ROUTINE Care 11/09/19 19:14 Active Vital Signs [RC] PER UNIT ROUTINE Care 11/09/19 19:14 Active Regular Diet [DIET] Diet 11/09/19 Breakfast Active CBC W/O DIFF,HEMOGRAM [HEME] Routine Lab 11/09/19 19:14 Ordered RAPID PLASMA REAGIN, QUANT [REF] Routine Lab 11/09/19 19:14 Ordered TYPE AND SCREEN [BBK] Routine Lab 11/09/19 19:14 Ordered Butorphanol [Stadol] Med 11/09/19 19:14 Active 1 mg IVPUSH Q1H PRN Carboprost Tromethamine [Hemabate DS] Med 11/09/19 19:14 Active 250 mcg IM ASDIRECTED PRN Lactated Ringers [Ringers, Lactated] 1,000 ml Med 11/09/19 19:15 Active IV ASDIRECTED Lidocaine 1% [Xylocaine 1%] Med 11/09/19 19:14 Active 50 ml INJECT ONETIME PRN Methylergonovine [Methergine] Med 11/09/19 19:14 Active 0.2 mg IM ASDIRECTED PRN Nalbuphine [Nubain] Med 11/09/19 19:14 Active 10 mg IVPUSH Q1H PRN Ondansetron [Zofran] Med 11/09/19 19:14 Active 4 mg IVPUSH Q6H PRN Oxytocin/0.9 % Sodium Chloride [Oxytocin 30 Unit/500 ML Med 11/09/19 19:15 Active -NS] 30 unit in 500 ml IV TITRATE Oxytocin/0.9 % Sodium Chloride [Oxytocin 30 Unit/500 ML Med 11/09/19 19:15 Active -NS] 30 unit in 500 ml IV TITRATE Sodium Chloride 0.9% [Normal Saline] Med 11/09/19 19:14 Active 10 ml IV ASDIRECTED PRN Sodium Chloride 0.9% [Saline Flush] Med 11/09/19 19:14 Active 10 ml FLUSH ASDIRECTED PRN Sodium Chloride 0.9% [Saline Flush] Med 11/09/19 19:14 Active 2.5 ml FLUSH ASDIRECTED PRN Terbutaline [Brethine] Med 11/09/19 19:14 Active 0.25 mg SUBCUT ASDIRECTED PRN Tranexamic Acid [Cyklokapron] 1,000 mg Med 11/09/19 19:14 Active Sodium Chloride 0.9% [Normal Saline] 100 ml IV ONETIME Water For Irrigation,Sterile [Sterile Water for Med 11/09/19 19:14 Active Irrigation] 1,000 ml IRR ASDIRECTED PRN miSOPROStoL [Cytotec] Med 11/09/19 19:14 Active 200 mcg PO ONETIME PRN Scalp Electrode [WOMSER] Per Unit Routine Oth 11/09/19 19:14 Ordered Medication Administration Instruction [OM.PC] Q3H Oth 11/09/19 19:15 Ordered Peripheral IV Insertion Adult [OM.PC] Routine Oth 11/09/19 19:14 Ordered Resuscitation Status Routine Resus Stat 11/09/19 19:14 Ordered Medication Orders Butorphanol Tartrate (Stadol) 1 mg IVPUSH Q1H PRN PRN Reason: Pain Carboprost Tromethamine (Hemabate Ds) 250 mcg IM ASDIRECTED PRN PRN Reason: Post Hemorrhage Lactated Ringer's (Ringers, Lactated) 1,000 mls @ 150 mls/hr IV ASDIRECTED JAZMYN Oxytocin/Sodium Chloride (Oxytocin 30 Unit/500 Ml-Ns) 30 unit in 500 mls @ 2 mls/hr IV TITRATE JAZMYN; Protocol Oxytocin/Sodium Chloride (Oxytocin 30 Unit/500 Ml-Ns) 30 unit in 500 mls @ 500 mls/hr IV TITRATE JAZMYN Tranexamic Acid 1,000 mg/ (Sodium Chloride) 110 mls @ 660 mls/hr IV ONETIME PRN PRN Reason: Bleeding Lidocaine HCl (Xylocaine 1%) 50 ml INJECT ONETIME PRN PRN Reason: Laceration repair Methylergonovine Maleate (Methergine) 0.2 mg IM ASDIRECTED PRN PRN Reason: Post Hemorrhage Misoprostol (Cytotec) 200 mcg PO ONETIME PRN PRN Reason: Post Hemorrhage Nalbuphine HCl (Nubain) 10 mg IVPUSH Q1H PRN PRN Reason: Pain (severe 7-10) Ondansetron HCl (Zofran) 4 mg IVPUSH Q6H PRN PRN Reason: Nausea/Vomiting Sodium Chloride (Saline Flush) 10 ml FLUSH ASDIRECTED PRN PRN Reason: Keep Vein Open Sodium Chloride (Saline Flush) 2.5 ml FLUSH ASDIRECTED PRN PRN Reason: Keep Vein Open Sodium Chloride (Normal Saline) 10 ml IV ASDIRECTED PRN PRN Reason: IV Use Sterile Water (Sterile Water For Irrigation) 1,000 ml IRR ASDIRECTED PRN PRN Reason: delivery Terbutaline Sulfate (Brethine) 0.25 mg SUBCUT ASDIRECTED PRN PRN Reason: Tacysystole Assessment/Plan Comment:: IOL A: 24yo EDC 11/15/2019 39 1/7wks IOL for term, O+, RI, GBS neg. Followed by me in the clinic. P: Admit, AROM for IOL, Pitocin, Epidural/Pain meds prn, anticipate . Dr Manriquez updated.
[2019-11-09] MEDS ORDERED: Misoprostol 25 MCG (1/4 of 100 MCG) Tab PO ONE (19:54)
[2019-11-09] MEDS: Misoprostol 50 MCG (1/2 of 100 MCG) Tab VAG ONE (20:33)
[2019-11-09] MEDS ORDERED: Calcium Carbonate 500 MG Tab.Chew PO PRN (21:47)
[2019-11-10] MEDS: Lactated Ringers 1,000 ML IV SCH ×2 (00:51→05:27)
--- NOTE | 2019-11-10 07:01 | PCM.DEL ---
L & D Note - General Info Date of Service: 11/10/19 Mother's Due Date: 11/15/19 - Delivery Note Labor: Induced by Oxytocin Cervical Ripening Method: Misoprostil Delivery Outcome: Livebirth Delivery Method: Spontaneous Vaginal Delivery-Single Infant Delivery Mode: Spontaneous Presentation: Vertex Nuchal Cord: None Anesthesia Type: None Amniotic Fluid Description: Meconium Stained Episiotomy Type: None Laceration: None Cord: 3 Vessels Estimated Blood Loss: 100 Resuscitation Needed: No Score 1 min: 8 Score 5 min: 9 Post Delivery Events: Shoulder Dystocia (80 sec) Second Stage Interventions: Reports: Other (see below) (hands and knees) Delivery Comments (Free Text/Narrative):: of viable male. Head delivered and would not progress with good pushing, Patient moved to hands and knees and with great pushing and anterior traction head and left arm delivered. Cord clamped and cut, to warmer for RN and Resp to evaluate. Spont crying. Shoulder dystocia for 80 seconds prior to delivery. Mother assisted to back. Cord blood collected. Pitocin to IVF. Placenta delivered grossly intact. Inspection noted intact perineum. EBL 100cc. APGARS 8/9, Wt: 9lb 4oz. Mother and baby left in stable condition for recovery Induction Criteria - Dumont Score Dumont Score Dilation: 1-2 cm Dumont Score Effacement: 60-70% Dumont Score 's Station: -3 Dumont Score Consistency: Medium Dumont Score Cervix Position: Posterior Dumont Score Total: 4 Dumont Score Presenting Part: Reports: Cephalic - Induction Gestational Age >/= 39 wks: Yes Medical Indication: Term Estimated Pelvis: Reports: Adequate Reassuring Monitoring Strip: Yes Absence of Tachy Systole: Yes - General Info Date of Service: 11/10/19 Admission Dx/Problem (Free Text): Patient Status Order with Admit Dx/Problem 11/09/19 19:14 Patient Status [ADT] Routine Admission Diagnosis/Problem Admission Diagnosis/Problem 11/09/19 19:38 24yo EDC 11/15/2019 39 1/7wks IOL for term, O+, RI, GBS neg. Followed by me in the clinic. Functional Status: Reports: Pain Controlled - Review of Systems General: Reports: No Symptoms HEENT: Reports: No Symptoms Pulmonary: Reports: No Symptoms Cardiovascular: Reports: No Symptoms Gastrointestinal: Reports: No Symptoms Genitourinary: Reports: No Symptoms Musculoskeletal: Reports: No Symptoms Skin: Reports: No Symptoms Neurological: Reports: No Symptoms Psychiatric: Reports: No Symptoms - Patient Data Weight - Most Recent: 97.522 kg Lab Results Last 24 Hours: Laboratory Results - last 24 hr 11/09/19 11/09/19 Range/Units 19:41 19:41 WBC 11.19 H (4.0-11.0) K/uL RBC 4.53 (4.30-5.90) M/uL Hgb 13.6 (12.0-16.0) g/dL Hct 39.2 (36.0-46.0) % MCV 86.5 (80.0-98.0) fL MCH 30.0 (27.0-32.0) pg MCHC 34.7 (31.0-37.0) g/dL RDW Std Deviation 43.4 (28.0-62.0) fl RDW Coeff of Adal 14 (11.0-15.0) % Plt Count 212 (150-400) K/uL MPV 11.00 (7.40-12.00) fL Nucleated RBC % 0.0 /100WBC Nucleated RBCs # 0 K/uL Blood Type O POSITIVE Antibody Screen NEGATIVE Med Orders - Current: Current Medications Butorphanol Tartrate (Stadol) 1 mg IVPUSH Q1H PRN PRN Reason: Pain Calcium Carbonate/Glycine (Tums) 1,000 mg PO Q2HR PRN PRN Reason: Indigestion Last Admin: 11/09/19 22:24 Dose: 1,000 mg Carboprost Tromethamine (Hemabate Ds) 250 mcg IM ASDIRECTED PRN PRN Reason: Post Hemorrhage Lactated Ringer's (Ringers, Lactated) 1,000 mls @ 150 mls/hr IV ASDIRECTED JAZMYN Last Admin: 11/10/19 05:27 Dose: 150 mls/hr Oxytocin/Sodium Chloride (Oxytocin 30 Unit/500 Ml-Ns) 30 unit in 500 mls @ 2 mls/hr IV TITRATE JAZMYN; Protocol Last Titration: 11/10/19 05:05 Dose: 10 munits/min, 10 mls/hr Oxytocin/Sodium Chloride (Oxytocin 30 Unit/500 Ml-Ns) 30 unit in 500 mls @ 500 mls/hr IV TITRATE JAZMYN Tranexamic Acid 1,000 mg/ (Sodium Chloride) 110 mls @ 660 mls/hr IV ONETIME PRN PRN Reason: Bleeding Lidocaine HCl (Xylocaine 1%) 50 ml INJECT ONETIME PRN PRN Reason: Laceration repair Methylergonovine Maleate (Methergine) 0.2 mg IM ASDIRECTED PRN PRN Reason: Post Hemorrhage Misoprostol (Cytotec) 200 mcg PO ONETIME PRN PRN Reason: Post Hemorrhage Nalbuphine HCl (Nubain) 10 mg IVPUSH Q1H PRN PRN Reason: Pain (severe 7-10) Last Admin: 11/10/19 03:20 Dose: 10 mg Ondansetron HCl (Zofran) 4 mg IVPUSH Q6H PRN PRN Reason: Nausea/Vomiting Sodium Chloride (Saline Flush) 10 ml FLUSH ASDIRECTED PRN PRN Reason: Keep Vein Open Sodium Chloride (Saline Flush) 2.5 ml FLUSH ASDIRECTED PRN PRN Reason: Keep Vein Open Sodium Chloride (Normal Saline) 10 ml IV ASDIRECTED PRN PRN Reason: IV Use Sterile Water (Sterile Water For Irrigation) 1,000 ml IRR ASDIRECTED PRN PRN Reason: delivery Terbutaline Sulfate (Brethine) 0.25 mg SUBCUT ASDIRECTED PRN PRN Reason: Tacysystole Discontinued Medications Misoprostol (Cytotec) 25 mcg PO ONETIME ONE Stop: 11/09/19 19:55 Last Admin: 11/09/19 20:33 Dose: 25 mcg Misoprostol (Cytotec) 25 mcg VAG ONETIME ONE Stop: 11/09/19 19:55 Last Admin: 11/09/19 20:33 Dose: 25 mcg - Exam General: Alert, Oriented, Cooperative Lungs: Normal Respiratory Effort GI/Abdominal Exam: Soft, Non-Tender, Pelvis Stable (Female) Exam: Normal External Exam, Normal Bimanual Exam, Vaginal Bleeding. No: Vaginal Lesions, Vaginal Tears Back Exam: Normal Inspection, Full Range of Motion Extremities: Normal Inspection, Normal Range of Motion, Non-Tender, No Pedal Edema Skin: Warm, Dry, Intact Neurological: No New Focal Deficit, Normal Speech, Normal Tone, Strength Equal Bilateral, Sensation Intact Psy/Mental Status: Alert, Normal Affect, Normal Mood - Problem List & Annotations (1) Supervision of normal IUP (intrauterine ) in multigravida SNOMED Code(s): 516607287, 866828041, 263922833 Code(s): Z34.80 - ENCOUNTER FOR SUPRVSN OF NORMAL , UNSP TRIMESTER Status: Acute Priority: High Current Visit: Yes Qualifiers: Trimester: third trimester Qualified Code(s): Z34.83 - Encounter for supervision of other normal , third trimester (2) Shoulder dystocia, delivered SNOMED Code(s): 753262201, 048016082 Code(s): O66.0 - OBSTRUCTED LABOR DUE TO SHOULDER DYSTOCIA Status: Acute Priority: High Current Visit: Yes (3) (normal spontaneous vaginal delivery) SNOMED Code(s): 47772473, 243129460 Code(s): O80 - ENCOUNTER FOR FULL-TERM UNCOMPLICATED DELIVERY Status: Acute Priority: High Current Visit: Yes - Problem List Review Problem List Initiated/Reviewed/Updated: Yes - My Orders Last 24 Hours: My Active Orders 11/09/19 19:14 Patient Status [ADT] Routine Bedrest Bathroom Privileges [RC] ASDIRECTED Communication Order [RC] ASDIRECTED Communication Order [RC] ASDIRECTED May Shower [RC] ASDIRECTED Notify Provider [RC] PRN Notify Provider [RC] PRN Oxygen Therapy [RC] ASDIRECTED Up ad Arlene [RC] ASDIRECTED Vital Signs [RC] PER UNIT ROUTINE Vital Signs [RC] PER UNIT ROUTINE Butorphanol [Stadol] 1 mg IVPUSH Q1H PRN Carboprost Tromethamine [Hemabate DS] 250 mcg IM ASDIRECTED PRN Lidocaine 1% [Xylocaine 1%] 50 ml INJECT ONETIME PRN Methylergonovine [Methergine] 0.2 mg IM ASDIRECTED PRN Nalbuphine [Nubain] 10 mg IVPUSH Q1H PRN Ondansetron [Zofran] 4 mg IVPUSH Q6H PRN Sodium Chloride 0.9% [Normal Saline] 10 ml IV ASDIRECTED PRN Sodium Chloride 0.9% [Saline Flush] 10 ml FLUSH ASDIRECTED PRN Sodium Chloride 0.9% [Saline Flush] 2.5 ml FLUSH ASDIRECTED PRN Terbutaline [Brethine] 0.25 mg SUBCUT ASDIRECTED PRN Tranexamic Acid [Cyklokapron] 1,000 mg Sodium Chloride 0.9% [Normal Saline] 100 ml IV ONETIME Water For Irrigation,Sterile [Sterile Water for Irrigation] 1,000 ml IRR ASDIRECTED PRN miSOPROStoL [Cytotec] 200 mcg PO ONETIME PRN Scalp Electrode [WOMSER] Per Unit Routine Peripheral IV Insertion Adult [OM.PC] Routine Resuscitation Status Routine 11/09/19 19:15 Lactated Ringers [Ringers, Lactated] 1,000 ml IV ASDIRECTED Oxytocin/0.9 % Sodium Chloride [Oxytocin 30 Unit/500 ML-NS] 30 unit in 500 ml IV TITRATE Oxytocin/0.9 % Sodium Chloride [Oxytocin 30 Unit/500 ML-NS] 30 unit in 500 ml IV TITRATE Medication Administration Instruction [OM.PC] Q3H 11/09/19 19:41 RAPID PLASMA REAGIN, QUANT [REF] Routine 11/09/19 21:47 Calcium Carbonate [Tums] 1,000 mg PO Q2HR PRN 11/09/19 Breakfast Regular Diet [DIET] - Plan Plan:: IOL A: 24yo EDC 11/15/2019 39 1/7wks IOL for term, O+, RI, GBS neg. Followed by me in the clinic. P: Admit, AROM for IOL, Pitocin, Epidural/Pain meds prn, anticipate . Dr Manriquez updated. Delivery A: viable male, APGARS 8/9, Wt: 9lb 4oz. Intact perineum, EBL 100cc. Stable P: Routine pp plan of care
[2019-11-10] MEDS ORDERED: Acetaminophen 500 MG Tab PO PRN (07:05)
[2019-11-10] MEDS ORDERED: oxyCODONE 5 MG Tab PO PRN (07:05)
[2019-11-10] MEDS ORDERED: Benzocaine/Menthol 20%-0.5% Spray 78 GM Cannister TOP PRN (07:05)
[2019-11-10] MEDS ORDERED: Lanolin 100% Cream 7 GM Tube TOP PRN (07:05)
[2019-11-10] MEDS ORDERED: Ibuprofen 400 MG Tab PO PRN (07:05)
[2019-11-10] MEDS ORDERED: Witch Hazel Medicated Pads 40/Jar TOP PRN (07:05)
[2019-11-10] MEDS ORDERED: Bisacodyl 10 MG Supp RECTAL PRN (07:05)
[2019-11-10] MEDS: Ibuprofen 800 MG Tab PO PRN ×3 (09:08→23:17)
[2019-11-10] MEDS: Acetaminophen 500 MG Tab PO PRN (19:03)
[2019-11-11] MEDS: Ibuprofen 800 MG Tab PO PRN ×3 (06:06→23:41)
[2019-11-11] MEDS: Acetaminophen 500 MG Tab PO PRN ×2 (06:07→23:42)
--- NOTE | 2019-11-11 09:38 | PCM.PNPP ---
- General Info Date of Service: 11/11/19 Admission Dx/Problem (Free Text): Patient Status Order with Admit Dx/Problem 11/09/19 19:14 Patient Status [ADT] Routine Admission Diagnosis/Problem Admission Diagnosis/Problem 11/09/19 19:38 24yo EDC 11/15/2019 39 1/7wks IOL for term, O+, RI, GBS neg. Followed by me in the clinic. Functional Status: Reports: Pain Controlled, Tolerating Diet, Ambulating, Urinating - Review of Systems General: Reports: No Symptoms HEENT: Reports: No Symptoms Pulmonary: Reports: No Symptoms Cardiovascular: Reports: No Symptoms Gastrointestinal: Reports: No Symptoms Genitourinary: Reports: No Symptoms Musculoskeletal: Reports: No Symptoms Skin: Reports: No Symptoms Neurological: Reports: No Symptoms Psychiatric: Reports: No Symptoms - General Info Date of Service: 11/11/19 - Patient Data Vital Signs - Most Recent: Last Vital Signs Temp 36.1 C 11/11/19 04:00 Pulse 60 11/11/19 04:00 Resp 16 11/11/19 04:00 BP 100/46 L 11/11/19 04:00 Pulse Ox 97 11/11/19 04:00 Weight - Most Recent: 97.522 kg Med Orders - Current: Current Medications Acetaminophen (Tylenol Extra Strength) 500 mg PO Q4H PRN PRN Reason: Pain Acetaminophen (Tylenol Extra Strength) 1,000 mg PO Q4H PRN PRN Reason: Pain Last Admin: 11/11/19 06:07 Dose: 1,000 mg Benzocaine/Menthol (Dermoplast Pain Relief 20%-0.5% [place]) 78 gm TOP ASDIRECTED PRN PRN Reason: Perineal Comfort Measure Bisacodyl (Dulcolax) 10 mg RECTAL ONETIME PRN PRN Reason: Constipation Docusate Sodium (Colace) 100 mg PO BID PRN PRN Reason: Constipation Emollient Ointment (Lansinoh Hpa) 0 gm TOP ASDIRECTED PRN PRN Reason: Sore Nipples Ibuprofen (Motrin) 400 mg PO Q4H PRN PRN Reason: Pain Ibuprofen (Motrin) 800 mg PO Q6H PRN PRN Reason: Pain Last Admin: 11/11/19 06:06 Dose: 800 mg Oxycodone HCl (Oxycodone) 5 mg PO Q2H PRN PRN Reason: Pain Witch Helen (Tucks) 1 pad TOP ASDIRECTED PRN PRN Reason: comfort care Discontinued Medications Butorphanol Tartrate (Stadol) 1 mg IVPUSH Q1H PRN PRN Reason: Pain Calcium Carbonate/Glycine (Tums) 1,000 mg PO Q2HR PRN PRN Reason: Indigestion Last Admin: 11/09/19 22:24 Dose: 1,000 mg Carboprost Tromethamine (Hemabate Ds) 250 mcg IM ASDIRECTED PRN PRN Reason: Post Hemorrhage Lactated Ringer's (Ringers, Lactated) 1,000 mls @ 150 mls/hr IV ASDIRECTED JAZMYN Last Admin: 11/10/19 05:27 Dose: 150 mls/hr Oxytocin/Sodium Chloride (Oxytocin 30 Unit/500 Ml-Ns) 30 unit in 500 mls @ 2 mls/hr IV TITRATE JAZMYN; Protocol Last Titration: 11/10/19 06:46 Dose: 999 munits/min, 999 mls/hr Oxytocin/Sodium Chloride (Oxytocin 30 Unit/500 Ml-Ns) 30 unit in 500 mls @ 500 mls/hr IV TITRATE JAZMYN Tranexamic Acid 1,000 mg/ (Sodium Chloride) 110 mls @ 660 mls/hr IV ONETIME PRN PRN Reason: Bleeding Lidocaine HCl (Xylocaine 1%) 50 ml INJECT ONETIME PRN PRN Reason: Laceration repair Methylergonovine Maleate (Methergine) 0.2 mg IM ASDIRECTED PRN PRN Reason: Post Hemorrhage Misoprostol (Cytotec) 200 mcg PO ONETIME PRN PRN Reason: Post Hemorrhage Misoprostol (Cytotec) 25 mcg PO ONETIME ONE Stop: 11/09/19 19:55 Last Admin: 11/09/19 20:33 Dose: 25 mcg Misoprostol (Cytotec) 25 mcg VAG ONETIME ONE Stop: 11/09/19 19:55 Last Admin: 11/09/19 20:33 Dose: 25 mcg Nalbuphine HCl (Nubain) 10 mg IVPUSH Q1H PRN PRN Reason: Pain (severe 7-10) Last Admin: 11/10/19 03:20 Dose: 10 mg Ondansetron HCl (Zofran) 4 mg IVPUSH Q6H PRN PRN Reason: Nausea/Vomiting Sodium Chloride (Saline Flush) 10 ml FLUSH ASDIRECTED PRN PRN Reason: Keep Vein Open Sodium Chloride (Saline Flush) 2.5 ml FLUSH ASDIRECTED PRN PRN Reason: Keep Vein Open Sodium Chloride (Normal Saline) 10 ml IV ASDIRECTED PRN PRN Reason: IV Use Sterile Water (Sterile Water For Irrigation) 1,000 ml IRR ASDIRECTED PRN PRN Reason: delivery Terbutaline Sulfate (Brethine) 0.25 mg SUBCUT ASDIRECTED PRN PRN Reason: Tacysystole - Interaction Infant Disposition, : [place] in Room with Family Infant Interaction: Holding Infant Feeding: Breastfed Infant; Nursed Well, Continues to Breastfeed Support Person: Significant Other - Recovery Exam Fundal Tone: Firm Fundal Level: 1 Fingerbreadths Below Umbilicus Fundal Placement: Midline Lochia Amount: Moderate, Clots/Tissue Present Lochia Color: Rubra/Red Perineum Description: Intact, Minimal Bruising/Swelling Episiotomy/Laceration: None Bladder Status: Nonpalpable Urinary Elimination: Voided - Exam General: Alert, Oriented, Cooperative, No Acute Distress Lungs: Normal Respiratory Effort GI/Abdominal Exam: Soft, Non-Tender, No Distention, Pelvis Stable Extremities: Normal Inspection, Normal Range of Motion, Non-Tender, No Pedal Edema Skin: Warm, Dry, Intact Neurological: No New Focal Deficit, Normal Speech, Normal Tone, Sensation Intact Psy/Mental Status: Alert, Normal Affect, Normal Mood - Problem List & Annotations (1) Supervision of normal IUP (intrauterine ) in multigravida SNOMED Code(s): 157493776, 567037343, 414117179 Code(s): Z34.80 - ENCOUNTER FOR SUPRVSN OF NORMAL , UNSP TRIMESTER Status: Acute Priority: High Current Visit: Yes Qualifiers: Trimester: third trimester Qualified Code(s): Z34.83 - Encounter for supervision of other normal , third trimester (2) Shoulder dystocia, delivered SNOMED Code(s): 658688096, 591266754 Code(s): O66.0 - OBSTRUCTED LABOR DUE TO SHOULDER DYSTOCIA Status: Acute Priority: High Current Visit: Yes (3) (normal spontaneous vaginal delivery) SNOMED Code(s): 56714223, 169647843 Code(s): O80 - ENCOUNTER FOR FULL-TERM UNCOMPLICATED DELIVERY Status: Acute Priority: High Current Visit: Yes - Problem List Review Problem List Initiated/Reviewed/Updated: Yes - My Orders Last 24 Hours: My Active Orders 11/10/19 Lunch Regular Diet [DIET] - Plan Plan:: IOL A: 24yo EDC 11/15/2019 39 1/7wks IOL for term, O+, RI, GBS neg. Followed by me in the clinic. P: Admit, AROM for IOL, Pitocin, Epidural/Pain meds prn, anticipate . Dr Manriquez updated. Delivery A: viable male, APGARS 8/9, Wt: 9lb 4oz. Intact perineum, EBL 100cc. Stable P: Routine pp plan of care PPD#1 A: VSS, AF, increased bleeding but no s/sx anemia, passed 2 clots (3 lemon and baseball size). well, encouraged to get out of bed and walk. Will stay another night. P: Stay over night, discharge home if stable tomorrow.
[2019-11-11] MEDS: Docusate Sodium 100 MG Cap PO PRN (13:24)
[2019-11-12] MEDS: Docusate Sodium 100 MG Cap PO PRN (07:20)
[2019-11-12] MEDS: Ibuprofen 800 MG Tab PO PRN (07:21)
[2019-11-12 07:51] VITALS: BP 118/58; PULSE 68
--- NOTE | 2019-11-12 09:05 | PCM.PNPP ---
- General Info Date of Service: 11/12/19 Functional Status: Reports: Pain Controlled - Review of Systems General: Reports: No Symptoms HEENT: Reports: No Symptoms Pulmonary: Reports: No Symptoms Cardiovascular: Reports: No Symptoms Gastrointestinal: Reports: No Symptoms Genitourinary: Reports: No Symptoms Musculoskeletal: Reports: No Symptoms Skin: Reports: No Symptoms Neurological: Reports: No Symptoms Psychiatric: Reports: No Symptoms - General Info Date of Service: 11/12/19 - Patient Data Vital Signs - Most Recent: Last Vital Signs Temp 36.9 C 11/12/19 07:10 Pulse 68 11/12/19 07:10 Resp 16 11/12/19 07:10 BP 118/58 L 11/12/19 07:10 Pulse Ox 97 11/12/19 07:10 Weight - Most Recent: 97.522 kg Med Orders - Current: Current Medications Acetaminophen (Tylenol Extra Strength) 500 mg PO Q4H PRN PRN Reason: Pain Acetaminophen (Tylenol Extra Strength) 1,000 mg PO Q4H PRN PRN Reason: Pain Last Admin: 11/11/19 23:42 Dose: 1,000 mg Benzocaine/Menthol (Dermoplast Pain Relief 20%-0.5% [place]) 78 gm TOP ASDIRECTED PRN PRN Reason: Perineal Comfort Measure Last Admin: 11/12/19 07:22 Dose: 1 spray Bisacodyl (Dulcolax) 10 mg RECTAL ONETIME PRN PRN Reason: Constipation Docusate Sodium (Colace) 100 mg PO BID PRN PRN Reason: Constipation Last Admin: 11/12/19 07:20 Dose: 100 mg Emollient Ointment (Lansinoh Hpa) 0 gm TOP ASDIRECTED PRN PRN Reason: Sore Nipples Last Admin: 11/12/19 07:20 Dose: 1 gm Ibuprofen (Motrin) 400 mg PO Q4H PRN PRN Reason: Pain Ibuprofen (Motrin) 800 mg PO Q6H PRN PRN Reason: Pain Last Admin: 11/12/19 07:21 Dose: 800 mg Oxycodone HCl (Oxycodone) 5 mg PO Q2H PRN PRN Reason: Pain Witch Helen (Tucks) 1 pad TOP ASDIRECTED PRN PRN Reason: comfort care Last Admin: 11/12/19 07:21 Dose: 1 pad Discontinued Medications Butorphanol Tartrate (Stadol) 1 mg IVPUSH Q1H PRN PRN Reason: Pain Calcium Carbonate/Glycine (Tums) 1,000 mg PO Q2HR PRN PRN Reason: Indigestion Last Admin: 11/09/19 22:24 Dose: 1,000 mg Carboprost Tromethamine (Hemabate Ds) 250 mcg IM ASDIRECTED PRN PRN Reason: Post Hemorrhage Lactated Ringer's (Ringers, Lactated) 1,000 mls @ 150 mls/hr IV ASDIRECTED JAZMYN Last Admin: 11/10/19 05:27 Dose: 150 mls/hr Oxytocin/Sodium Chloride (Oxytocin 30 Unit/500 Ml-Ns) 30 unit in 500 mls @ 2 mls/hr IV TITRATE JAZMYN; Protocol Last Titration: 11/10/19 06:46 Dose: 999 munits/min, 999 mls/hr Oxytocin/Sodium Chloride (Oxytocin 30 Unit/500 Ml-Ns) 30 unit in 500 mls @ 500 mls/hr IV TITRATE JAZMYN Tranexamic Acid 1,000 mg/ (Sodium Chloride) 110 mls @ 660 mls/hr IV ONETIME PRN PRN Reason: Bleeding Lidocaine HCl (Xylocaine 1%) 50 ml INJECT ONETIME PRN PRN Reason: Laceration repair Methylergonovine Maleate (Methergine) 0.2 mg IM ASDIRECTED PRN PRN Reason: Post Hemorrhage Misoprostol (Cytotec) 200 mcg PO ONETIME PRN PRN Reason: Post Hemorrhage Misoprostol (Cytotec) 25 mcg PO ONETIME ONE Stop: 11/09/19 19:55 Last Admin: 11/09/19 20:33 Dose: 25 mcg Misoprostol (Cytotec) 25 mcg VAG ONETIME ONE Stop: 11/09/19 19:55 Last Admin: 11/09/19 20:33 Dose: 25 mcg Nalbuphine HCl (Nubain) 10 mg IVPUSH Q1H PRN PRN Reason: Pain (severe 7-10) Last Admin: 11/10/19 03:20 Dose: 10 mg Ondansetron HCl (Zofran) 4 mg IVPUSH Q6H PRN PRN Reason: Nausea/Vomiting Sodium Chloride (Saline Flush) 10 ml FLUSH ASDIRECTED PRN PRN Reason: Keep Vein Open Sodium Chloride (Saline Flush) 2.5 ml FLUSH ASDIRECTED PRN PRN Reason: Keep Vein Open Sodium Chloride (Normal Saline) 10 ml IV ASDIRECTED PRN PRN Reason: IV Use Sterile Water (Sterile Water For Irrigation) 1,000 ml IRR ASDIRECTED PRN PRN Reason: delivery Terbutaline Sulfate (Brethine) 0.25 mg SUBCUT ASDIRECTED PRN PRN Reason: Tacysystole - Infant Interaction Infant Disposition, : [place] in Room with Family Interaction: Holding Infant Feeding: Breastfed ; Nursed Well, Continues to Breastfeed Support Person: Significant Other - Recovery Exam Fundal Tone: Firm Fundal Level: 3 Fingerbreadths Below Umbilicus Fundal Placement: Midline Lochia Amount: Scant Lochia Color: Rubra/Red Perineum Description: Intact, Minimal Bruising/Swelling Episiotomy/Laceration: None Bladder Status: Nonpalpable Urinary Elimination: Voided - Exam General: Alert, Oriented HEENT: Pupils Equal Neck: Supple Lungs: Clear to Auscultation, Normal Respiratory Effort Cardiovascular: Regular Rate, Regular Rhythm GI/Abdominal Exam: Normal Bowel Sounds, Soft, Non-Tender, No Organomegaly, No Distention, No Abnormal Bruit, No Mass, Pelvis Stable Extremities: Normal Inspection, Normal Range of Motion, Non-Tender, No Pedal Edema, Normal Capillary Refill Skin: Warm, Dry, Intact Wound/Incisions: Healing Well Neurological: No New Focal Deficit Psy/Mental Status: Alert, Normal Affect, Normal Mood - Problem List Review Problem List Initiated/Reviewed/Updated: Yes - Assessment Assessment:: Status post normal spontaneous vaginal delivery she is doing well we sent home today - Plan Plan:: IOL A: 24yo EDC 11/15/2019 39 1/7wks IOL for term, O+, RI, GBS neg. Followed by me in the clinic. P: Admit, AROM for IOL, Pitocin, Epidural/Pain meds prn, anticipate . Dr Manriquez updated. Delivery A: viable male, APGARS 8/9, Wt: 9lb 4oz. Intact perineum, EBL 100cc. Stable P: Routine pp plan of care PPD#1 A: VSS, AF, increased bleeding but no s/sx anemia, passed 2 clots (3 lemon and baseball size). well, encouraged to get out of bed and walk. Will stay another night. P: Stay over night, discharge home if stable tomorrow.
== END 2019-11-12 12:44 | disposition home or self-care (01) | DRG 807 ==
LOC: MW.OB 06:39 → OBSVTOIN 11-10 06:39 → MW.OB 11-10 10:00
PROVIDERS: ADMIT Obstetrics & Gynecology; ATTEND Obstetrics & Gynecology
PROC: 10E0XZZ Delivery of Products of Conception, External Approach (ICD-10-PCS; principal; 2019-11-10)
PROC: 3E033VJ Introduction of Other Hormone into Peripheral Vein, Percutaneous Approach (ICD-10-PCS; 2019-11-10)
PROC: 3E0P7VZ Introduction of Hormone into Female Reproductive, Via Natural or Artificial Opening (ICD-10-PCS; 2019-11-10)
PROC: 3E0R3BZ Introduction of Anesthetic Agent into Spinal Canal, Percutaneous Approach (ICD-10-PCS; 2019-11-10)
DX: O77.0 Labor and delivery complicated by meconium in amniotic fluid (principal); Z37.0 Single live birth; O66.0 Obstructed labor due to shoulder dystocia; O99.284 Endocrine, nutritional and metabolic diseases complicating childbirth; E03.9 Hypothyroidism, unspecified; Z3A.39 39 weeks gestation of pregnancy; Z91.040 Latex allergy status
CPT/HCPCS: 36415; 59025; 59409; 85027; 86593; 86850; 86900; 86901; A9270-GY; J2300; J2590; J7120

== ENCOUNTER 2019-11-24 00:27 | Emergency (ER) | payer MEDICAID ==
--- NOTE | 2019-11-24 03:48 | EDM.PDOC ---
ED HPI GENERAL MEDICAL PROBLEM - General Chief Complaint: Fever Stated Complaint: FEVER Time Seen by Provider: 11/24/19 02:27 Source of Information: Reports: Patient - History of Present Illness INITIAL COMMENTS - FREE TEXT/NARRATIVE: Patient has been breast-feeding and has pain in her left breast some redness and pain which she breast-feed her baby Onset: Today Duration: Hour(s): (12), Getting Worse Quality: Reports: Ache Improves with: Reports: None Worsens with: Reports: None Associated Symptoms: Reports: No Other Symptoms Left Breast Pain Score (Numeric/FACES): 4 - Related Data Allergies Allergy/AdvReac Type Severity Reaction Status Date / Time latex Allergy Rash Verified 11/24/19 01:36 Home Meds: Home Meds Pnv No.95/Ferrous Fum/Folic AC [ Tablet] 1 tab PO DAILY 11/09/19 [ History] Past Medical History HEENT History: Reports: None Cardiovascular History: Reports: None Respiratory History: Reports: None Gastrointestinal History: Reports: None Genitourinary History: Reports: None 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 , , 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 Musculoskeletal History: Reports: None Neurological History: Reports: None Psychiatric History: Reports: Anxiety, Depression Endocrine/Metabolic History: Reports: Hypothyroidism, Other (See Below) Other Endocrine/Metabolic History: Berry's thyroiditis Hematologic History: Reports: None Immunologic History: Reports: Other (See Below) Other Immunologic History: Hashimotos disease Oncologic (Cancer) History: Reports: None Dermatologic History: Reports: None - Infectious Disease History Infectious Disease History: Reports: Chicken Pox - Past Surgical History Head Surgeries/Procedures: Reports: None Female Surgical History: Reports: D&C Other Female Surgeries/Procedures: X2 Social & Family History - Family History Family Medical History: Noncontributory Cardiac: Reports: Pacemaker Respiratory: Reports: Asthma OBGYN: Reports: Neurological: Reports: CVA Endocrine/Metabolic: Reports: Diabetes, type II Oncologic: Reports: Colon - Tobacco Use Smoking Status *Q: Never Smoker Second Hand Smoke Exposure: No - Caffeine Use Caffeine Use: Reports: None Caffeine Use Comment: a couple times a week - Recreational Drug Use Recreational Drug Use: No ED ROS GENERAL - Review of Systems Review Of Systems: See Below Constitutional: Reports: Fever HEENT: Reports: No Symptoms Respiratory: Reports: No Symptoms Cardiovascular: Reports: No Symptoms Endocrine: Reports: No Symptoms GI/Abdominal: Reports: No Symptoms : Reports: No Symptoms Musculoskeletal: Reports: No Symptoms Skin: Reports: No Symptoms Neurological: Reports: No Symptoms Psychiatric: Reports: No Symptoms Hematologic/Lymphatic: Reports: No Symptoms Immunologic: Reports: No Symptoms ED EXAM, SEPSIS - Physical Exam Exam: See Below Text/Narrative:: 24-year-old patient with left-sided breast pain after breast-feeding. Patient is a new mother has been breast-feeding for 2 weeks. Started developing pain in her left breast and has had a fever Exam Limited By: No Limitations General Appearance: Alert, WD/WN, No Apparent Distress Ears: Normal External Exam, Normal Canal, Normal TMs Nose: Normal Inspection, Normal Mucosa Throat/Mouth: Normal Inspection, Normal Lips Head: Atraumatic, Normocephalic Neck: Normal Inspection Respiratory/Chest: No Respiratory Distress, Other (Patient has some redness to her left breast with minimal to moderate pain. Right breast shows minimal redness. With out pain) Cardiovascular: Normal Peripheral Pulses GI/Abdominal Exam: Normal Bowel Sounds (Female) Exam: Deferred Rectal (Female) Exam: Deferred Neurological: Alert, Oriented, CN II-XII Intact Psychiatric: Normal Affect, Normal Mood Skin: Warm, Dry Lymphatic: Bilateral: No Adenopathy Course - Vital Signs Last Recorded V/S: Last Vital Signs Temp 99.3 F 11/24/19 01:34 Pulse 113 H 11/24/19 01:34 Resp 18 11/24/19 01:34 BP 132/73 11/24/19 01:34 Pulse Ox 96 11/24/19 01:34 Departure - Departure Time of Disposition: 03:48 Disposition: Home, Self-Care 01 Condition: Good Clinical Impression: Mastitis - Discharge Information Referrals: Lizzy Stapleton DO [Primary Care Provider] - Sepsis Event Note - Evaluation Sepsis Screening Result: No Definite Risk - Focused Exam Vital Signs: Vital Signs Temp Pulse Resp BP Pulse Ox 11/24/19 01:34 99.3 F 113 H 18 132/73 96 Date Exam was Performed: 11/24/19 Time Exam was Performed: 03:43
[2019-11-24] MEDS ORDERED: Cephalexin 500 MG Cap PO ONE (03:49)
[2019-11-24 04:07] VITALS: BP 135/63; PULSE 103
== END 2019-11-24 04:00 | disposition home or self-care (01) ==
LOC: MW.ED 00:27
DX: N61.0 Mastitis without abscess (principal); Z91.040 Latex allergy status
CPT/HCPCS: 87804; 99283; A9270; 99282